=== PATIENT | female | born 1955 | race African-American/Black ===

== ENCOUNTER 2025-03-11 13:47 | Outpatient (OUT) | payer MEDICARE, MEDICAID, SELFPAY ==
--- NOTE | 2025-03-11 15:00 | P.CN_ITS ---
Consult Note: HPI Data of Consult Patient: new to practice Consult date: 03/11/25 Requesting Physician: Suzan Gomez MD Primary Care Provider: Jennifer Samayoa NP Consult Narrative Reason for consult: neck, left arm pain Narrative: 69yof who presents for evaluation. longstanding history of neck, shoulder, left arm pain. has had some relief with pain medication, but pain has persistently gotten worse. previous cervical mri showed multilevel stenosis, but this is now >18 months old. has continued in a series of provider directed home exercises >6 weeks, without significant benefit. denies adverse medication side effects. cc:: CC: Suzan Gomez MD Review of Systems ROS Status of ROS 10 or more systems reviewed and unremark able except as noted in history and below Exam Narrative Exam Narrative: Psych-alert and oriented x 3.? Attentive and appropriate, constitutionally normal, displays normal mood and affect per situation.? There are no obvious deficits in memory, reasoning, or intellect.? Skin-no obvious rashes, bruising, or erythema noted to the patient's area of pain.? Extremities-upper extremities are warm with minimal edema and palpable pulses. Cervical- tenderness to palpation noted in the cervical spine and paraspinal musculature.? Pain is elicited with flexion, extension, and lateral rotation of the cervical spine.? Range of motion is diminished due to pain. Facet loading maneuvers are positive.? Strength-unremarkable and within normal limits with the exception to the left biceps. Sensory-no notable sensory deficits in the bilateral upper extremities to touch or pinprick with the exception to decreased sensation to the left C4, 5, 6 dermatomal distribution.? Coordination remains intact.? Gait remains non-antalgic.? Assessment and Plan Assessment and Plan (1) Cervical stenosis of spinal canal: (2) Cervical spondylosis: Plan 69yof who presents for evaluation. failed conservative measures, as noted. imaging reviewed, as noted. given symptoms and previous imaging, would like to update her imaging with a cervical mri without contrast. she is in agreement. meds reviewed. will trial lyrica 50mg tid. she expressed understanding. follow up after imaging complete.
== END 2025-03-11 13:48 | disposition home or self-care (01) ==
LOC: PM 13:49
PROVIDERS: PCP Nurse Practitioner Adult Health; Visit Provider Anesthesiology
DX: M48.02 Spinal stenosis, cervical region (principal); M47.812 Spondylosis without myelopathy or radiculopathy, cervical region
CPT/HCPCS: G0463

== ENCOUNTER 2025-06-05 14:26 | Outpatient (OUT) | payer MEDICARE, MEDICAID, SELFPAY ==
--- OUTSIDE RECORDS SUMMARY | 2021-04-20 04:00 | XMS_ITS | Continuity of Care Document ---
Author Organization [facility] Address [address] [place] [address] Phone Care Team Providers Care Humidifier Attendant Name Role Phone Kin Ruiz Unavailable Unavailable Procedures Procedure Date Covid Testing [facility] Covid Testing [facility] Advance Directives Directive Yes / No Effective Date File Name No Information Encounters Encounter Description Practice Location Reason(s) For Visit Diagnoses Date Provider Providers Copied on Encounter [facility], [address] [place] [address], [id number], tel:[phone] COVID [facility] No Information Hema Edgar. [address], [place], [id number], [place]. tel:[phone] [facility], [address] [place] [address], [id number], tel:[phone] COVID [facility] Encounter for screening for other viral diseases Hema Edgar. [address], [place], [id number], [place]. tel:[phone] Family History Family Member Type Diagnosis Age At Onset No Information Payers Payer name Insurance type Covered green party ID Authoriza tion(s) Medicare PPS MB [id number] Social History Type Description Quantity Date Captured Comments Sex Female Smoking Status No Information Sexual Orientation Straight or heterosexual Gender Identity Female Chief Complaint And Reason For Visit No Information Reason For Referral Reason For Referral No Information History Of Present Illness Encounter Date Complaint History Of Prese nt Illness No Information Functional Status Date Functional Assessmen t No Information Instructions Date Instruction Additional Infor mation No Information Assessments Type Assessment Date No Information Patient Care Teams Name Effective Dates (start - stop) Status Members No Information
--- OUTSIDE RECORDS SUMMARY | 2025-05-30 17:35 | XMS_ITS | Continuity of Care Document ---
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 Name Role Phone Jennifer Samayoa NP-C Primary Care Provider Ginger HornC Other Provider [phone] Nick Pérez MD Attending Provider Jennifer Samayoa NP-C Attending Provider [phone] NON STAFF Primary Care Provider Ginger Correa NP-C Attending Provider Norman Contreras MD Attending Provider Mani Valle PA-C Emergency Provider Care Teams Patient Care Team Team Status: Active Member Role/Relationship Status Dates Jennifer Samayoa NP-C Primary Care Provider Active Visit Care Team Team Status: Active Member Role/Relationship Status Dates Jennifer Samayoa INSPECTOR SUBASSEMBLY-C Primary Care Provider Active Start: April 11, 2025 Toshia Mathur ProviderActiveStart: April 11, 2025 Papo Pulliam ProviderActiveStart: April 11, 2025 Visit Care Team Team Status: Inactive Member Role/Relationship Status Dates Jennifer Samayoa NP-C Attending Provider Active Start: April 30, 2025 End: April 30, 2025NON STAFFPrimary Care ProviderActiveStart: April 30, 2025 End: April 30, 2025 Visit Care Team Team Status: Inactive Member Role/Relationship Status Dates ЮЛИЯ Mathur Attending Provider Active St art: May 07, 2025 End: May 07, 2025NON STAFFPrimary Care ProviderActiveStart: May 07, 2025 End: May 07, 2025 Visit Care Team Team Status: Active Member Role/Relationship Status Dates ROOSEVELT PierreC Primary Care Provider Active Start: May 09, 2025 Norman Contreras [facility] ProviderActiveStart: May 09, 2025 Visit Care Team Team Status: Inactive Member Role/Relationship Status Dates Mani Valle PA-C Emergency Provider Active Start: May 30, 2025 End: May 30, 2025ROOSEVELT PierreCPrimary Care ProviderActiveStart: May 30, 2025 End: May 30, 2025 Chief Complaint and Reason for Visit Chief Complaint Admit Date Z95.0 April 11, 2025 1:42pm f11.90 April 30, 2025 9:00am Central stenosis May 07, 2025 7: 25am BH May 09, 2025 10 :00am gi issues May 30, 2025 6 :43pm Allergies, Adverse Reactions, Alerts Allergen Type Severity Reaction Last Updated Verified Status No Known Allergies Allergy Unknown May 30, 2025 6:50pmYesActive Social History Smoking Status Status Start Date End Date Date of Observa tion Current some day smoker May 30, 2025 7:45pm Observation Status Observation Response Date of Response Legal Sex Female (finding) Sex Assigned At BirthFemaleFebruary 1955 Family History Relationship Condition Age at Onset Recorded Date/T chasidy grandparent Cerebrovascular accident (CVA) Unknown fatherMyocardial infarctionUnknownHypertensionUnknownfamily memberDiabetes mellitusUnknownmotherDisorder of kidneyUnknownMyocardial infarctionUnknown HypertensionUnknown Problems Active Problems Problem Diagnosis/Recorded Date Onset Date Stat us RONAK (acute kidney injury) March 20, 2020 9:42pm Unk nown Active Effusion, right knee February 22, 2022 1:53pm Unknown Active [place] toxicity March 20, 2020 8:24pm Unknown Active [place] use March 01, 2019 4:48am Unknown Acti ve Acute proctitis May 30, 2025 9:29pm Unknown Active Cervical spondylosis without myelopathy January 28 7:28pm Unknown Active Feeling suicidal November 03, 2017 5:25am Unknown A ctive Tardive dyskinesia March 01, 2019 12:54am Unknown Active Tardive dyskinesia March 01, 2019 4:48am Unknown Active Tardive dyskinesia August 29, 2023 6:06pm Unknown Active Drug-induced parkinsonism January 28, 2025 7:28pm Unkno wn Active Lumbar strain September 20, 2021 5:49pm Unknown Active Strain of lumbar region April 24, 2017 8:02pm Un known Active Bilateral occipital neuralgia January 05, 2024 3:31pm Un known Active Acute exacerbation of chroni c low back pain July 20, 2019 2:35am Unknown Active Colitis, infectious September 07, 2020 2:19am Unknown Active Dizziness August 26, 2020 1:30am Unknown Ac tive Dizziness September 07, 2020 2:19am Unknown Ac tive Cocaine abuse November 03, 2017 5:25am Unknown Acti ve Chronic constipation January 22, 2024 7:21pm Unknown Active GI bleed March 18, 2022 12:21pm Unknown Ac tive Dyslipidemia March 23, 2020 12:03pm Unknown Ac tive Numbness in feet January 28, 2025 7:28pm Unknown A ctive Metabolic encephalopathy March 03, 2019 10:52am Unkn own Active Anxiety January 03, 2023 3:42pm Unknown Active Sinus bradycardia March 23, 2020 12:02pm Unknown Active Sinus bradycardia May 22, 2020 6:42pm Unknown Active Bradycardia May 21, 2020 6:27pm Unknown Ac tive Bradycardia May 21, 2020 8:53pm Unknown Ac tive Chest wall pain February 08, 2021 6:46pm Unknown Ac tive Chest wall pain February 08, 2021 6:49pm Unknown Ac tive History of laparoscopic appendectomy April 10, 2:02pm Unknown Active Colitis March 18, 2022 12:22pm Unknown Ac tive Hemorrhagic shock March 18, 2022 12:22pm Unknown Active Chronic pain of right knee January 03, 2023 3:42pm Unkno wn Active Depression November 03, 2017 5:25am Unknown Activ e Diarrhea October 02, 2021 12:49pm Unknown Acti ve Leukocytosis September 07, 2020 2:19am Unknown Ac tive Occipital neuralgia of left side January 28, 2025 7:27p m Unknown Active Atypical chest pain September 22, 2021 2:23am Unknown Active Other chronic pain January 05, 2024 9:58am Unknown Active Proctitis December 01, 2023 2:45pm Unknown Active Schizoaffective disorder November 06, 2017 1:08pm Unknow n Active Schizophrenia September 08, 2017 3:47pm Unknown A ctive Schizophrenia March 01, 2019 12:54am Unknown Ac tive Ischemic colitis September 07, 2020 6:20pm Unknown Active Bipolar 1 disorder March 01, 2019 12:54am Unknown Active Bright red rectal bleeding September 07, 2020 2:19am U nknown Active Bright red rectal bleeding September 22, 2021 2:23am Unknown Active Bright red rectal bleeding March 17, 2022 9:28pm Un known Active Rectal bleeding September 07, 2020 2:47am Unknown Active Acute UTI September 07, 2017 10:27pm Unknown A ctive Acute UTI November 03, 2017 5:25am Unknown Activ e Acute UTI August 29, 2023 8:54pm Unknown Ac tive Altered mental status March 20, 2020 8:24pm Unknown Active Polysubstance abuse November 03, 2017 9:42pm Unknown Active Acute blood loss anemia March 18, 2022 12:21pm Unkn own Active Melena October 02, 2021 12:48pm Unknown Acti ve GERD (gastroesophageal reflux disease) December 01, 2023 2 :46pm Unknown Active Abdominal pain October 02, 2021 12:49pm Unknown Ac tive Bronchitis June 21, 2017 2:56am Unknown A ctive Chest pain May 30, 2021 7:15am Unknown Ac tive Chest pain January 03, 2023 3:42pm Unknown Active Chest pain August 29, 2023 5:59pm Unknown Ac tive Hypertension March 01, 2019 12:54am Unknown Act shonda Constipation December 01, 2023 2:45pm Unknown Active Stercoral ulcer of anus March 18, 2022 1:01pm Unkno wn Active Contact dermatitis July 06, 2020 5:57pm Unknown Active Inactive/Resolved Problems Problem Diagnosis/Recorded Date Onset Date Stat us Presence of Watchman left at rial appendage closure device August 30, 2023 5:15pm Unknown Resolved History of shingles October 18, 2023 10:38am Unknown Resolved Cocaine abuse September 07, 2017 10:27pm Unknown Resolved Suicidal ideation September 07, 2017 10:27pm Unknown Resolved Essential thrombocytosis August 01, 2024 5:19pm Unkn own Resolved Anxiety May 17, 2023 10:16pm Unknown R esolved Anxiety October 18, 2023 10:38am Unknown Res olved Sick sinus syndrome September 09, 2020 3:47pm Unknown Resolved Colitis December 22, 2024 4:28pm Unknown Resolv ed Diverticulitis December 06, 2023 2:01am Unknown Resol colleen History of rectal bleeding March 30, 2023 1:45pm Un known Resolved Right lower quadrant abdominal abscess January 22, 2024 7:21pm Unknown Resolved Bright red rectal bleeding March 30, 2023 1:45am Un known Resolved Knee pain, left February 03, 2023 5:18pm Unknown Res olved Acute UTI May 14, 2024 8:58pm Unknown Re solved Acute UTI August 23, 2024 12:31pm Unknown R esolved Acute UTI December 22, 2024 4:28pm Unknown Resolv ed Altered mental status March 01, 2019 3:31am Unknown Resolved Knee pain March 01, 2024 9:24pm Unknown Reso lved Nausea and vomiting January 22, 2024 7:21pm Unknown Resolved Abdominal pain January 15, 2025 9:03pm Unknown Res olved Bronchitis August 23, 2024 11:49am Unknown R esolved Chest pain December 06, 2023 2:01am Unknown Resolve d Nausea January 15, 2025 9:03pm Unknown Resol colleen Parkinson disease February 09, 2024 2:59pm Unknown Resolved Constipation August 01, 2024 5:19pm Unknown Res olved Acute appendicitis January 22, 2024 6:24pm Unknown Resolved Medications Medication Status Dose Units Route Directions Qty Days Refills S tart Date Stop Date End Date Reason(s) Instructions Adherence Lactulose 10 gram/15 mL solution Discontinued 15 ML PO Twice daily as needed for constipation 237 11December 2023 12:21pmJuly 2024 8:15amTopiramate 25 mg tablet Xmavaqtqwfyu72JJKIEupfo at sevqket862Tfuv 2024 12:00amJuly 2024 8:15amDeutetrabenazine (Austedo) 9 mg ocerwzTyswhx7KPHNAxonm times sgdko962182 March 19, 2025 12:00amTake one tablet by mouth in the morning, one tablet by mouth in the afternoon and two tablets by mouth at bedtimeComplies with drug therapyTopiramate 25 mg mkfzliPudkpe31UJBTDhvcx at gjywlbi40506Orwxesxnj 11th, 2025 12:00amComplies with drug therapyAmitriptyline 25 mg GlgdsgPybvrzlpxkjb83QC PODaily at fzxvlev7Yqshi 2017 12:002018 12:54amHydroxyzine Pamoate (Vistaril) 50 mg RmvirkvVawprstzeven08PVVMWoqzs uhyrm17Jcuqc 2017 8:302018 12:53amIloperidone (Fanapt) 6 mg UpaopvCauopzqdcdse9JIHK Twice hhijd079Whdxo 2017 11:302018 12:53amNaproxen 500 mg hinnhpNmmokqgxygno571WDACFzpho daily as needed for szir662Blezulya 2017 1:002018 12:53amadminister with food or milkTrazodone 50 mg Tablet Ovwtgsdpmtqz186ATEMBraom at bedtimegust 2019 12:00amJune 2023 3:11pmLithium Carbonate 300 mg Tablet Extended NnpclnePglimifvkdzp659TZLVNtgar March 21, 2020 12:00ugust 2019 11:14amCetirizine (Zyrtec) 10 mg SirnyobDuetkvynsfsb86EVORWzqxzKzbedg 21st, 2020 12:00amFebruary 2020 11:26pmErgocalciferol (Vitamin D2) (Vitamin D2) 1,250 mcg (50,000 unit) Capsule Lbjovpgrjhzt7163HUWBPkuzbf weekMarch 21, 2020 12:00amFebruary 2020 11:26pmDiphenhydramine Hcl (Banophen) 25 mg JisbjfqQtcxwotykews60MKDZFspti at bedtime2019 12:00amFebruary 2021 5:35pmOlanzapine 20 mg PuqvysFkuufwyrgkup55BQJYHfejvdjZrtiip 2019 12:00amFebruary 2020 11:26pmDiclofenac Sodium 75 mg Tablet,Delayed Release (Dr/Ec)Bhvhtykjkqmb47NREL Twice dailyAugust 2019 12:00amAugust 2019 11:14amDivalproex 500 mg Tablet,Delayed Release (Dr/Ec)Lhdwlgvgkwny852LTFRJbqmj etlcj60617Gkeuav 2019 12:00amFebruary 2020 11:26pmCephalexin (Keflex) 500 mg capsule Elacbrsfridl6892UXEKPgyqo wyqcg2532Ixclsle 2020 1:00amFebruary 2020 11:26pmSertraline 25 mg dibiftWpbibgejnxif80OXVWFzawiOnfppevs 2021 1:00am January 05, 2024 3:11pmZolpidem 5 mg roahgkGfdugb5GBBXNkingir as needed for Sleep September 20, 2021 1:00amComplies with drug therapyDeutetrabenazine (Austedo) 9 mg jceinyTrttolzuspgu57DHNEDgzsbdzSmractak 2021 1:00amJune 2023 3:09pmpatient takes 9 mg morning and noon and 18 mg at HSDiclofenac Sodium 1 % vnuEqjcipcjhmah5NPOEMIMJWJqmj times iuqrn4207Tgho 2021 12:00amMarch 2023 8:42amapply to single knee, ankle, foot; for foot includes sole/toes/top of footHydrocodone-Acetaminophen 5-325 mg srcemoQrfutlsinmpl5DOXHLM8M as needed for zhfb907Goxn 2021 7:15pmAcute knee pain Pain in unspecified kneeHydrocortisone Acetate (Anusol-Hc) 25 mg suppository Otkmuqzdsani20DHFQPpzfp431Jppcla 2022 12:00amJune 2023 3:10pmDocusate Sodium (Colace) 100 mg msjdqsyMqwvktitbhms689MFMXIxncv642Lijrde 2022 12:00amMay 2023 2:52pmHydrocortisone (Anusol-Hc) 2.5 % cream with perineal grosmyzgznDnjqacrugmfz2JPZQDXYQ0-6 TIMES PER DAY as needed for bznd798Bthtva 2022 12:00amJune 2023 10:31pmHydroxyzine Pamoate (Vistaril) 50 mg hrlhecaYyfbehjzpslb52BVCLCaeyf daily as needed for dchcbza78Kpsoibt 2022 12:00amNovember 2022 3:41pmAmoxicillin-Pot Clavulanate 875-125 mg tablet Hzlqdyomznzz4QHDMJQrmlv exean5816Npv 2023 12:00amJune 2023 3:10pm Acetaminophen-Codeine 300-30 mg bypeikKddpokoelrzo2VVPQN.tid weeklyJune 2023 12:00amJune 2023 11:51amCetirizine 10 mg tabletDiscontinuedMGJune 2023 12:00amJuly 2024 8:15amPantoprazole 40 mg tablet,delayed release (DR/EC)Ejnnsexbuntg09OGVFAtwakImyx 2023 12:00amSeptember 2023 2:07pmDivalproex 500 mg tablet,delayed release (DR/EC)Bkjgjduqtrtc057OFDD DailyJune 2023 12:00amSeptember 2023 2:01pmHydrocodone-Acetaminophen 5-325 mg gunvblGivostqgvlru9CQDOOT6K as needed for quaz6453Vtyf 2023April 10, 2024 2:02pmAcute appendicitis Unspecified acute appendicitisAcetaminophen-Codeine 300-30 mg tabletDiscontinued 1TABPOEvery 8 hours as needed for zkym3989Xszz 2023 12:00amJuly 2024 8:15amAbdominal pain Unspecified abdominal painNabumetone 750 mg wyriinKtxprujezwze442PAMNQupxe daily 100August 2023 12:00amJuly 2024 8:15amCephalexin 500 mg capsule Teystoalcldi555VZONTxtpo yikky9036Ykytkgu 2023 12:00amJune 2024 4:06pmAmoxicillin-Pot Clavulanate 875-125 mg vetpriSwsehqghwhgv7MHKNKOxpbd daily 140May 2024 12:00amMay 2024 3:15pmAtogepant (Qulipta) 10 mg tablet Wxbpby33GYRNGjtlmQiar 2024 12:00amComplies with drug therapy Diphenhydramine Hcl 25 mg qbrndtPkiksx26YTGPQwcfc at bedtimeJuly 2024 12:00amComplies with drug therapyCyclobenzaprine 5 mg vdavjxHtlkgl3ANTKBiyxr at bedtimeJuly 2024 12:00amComplies with drug therapyDeutetrabenazine (Austedo) 12 mg vecwfhDgphdy21VSPEQjuye at bedtimeJuly 2024 12:00am Complies with drug therapyOxycodone-Acetaminophen 5-325 mg tabletDiscontinued1 VZXSMV2F as needed for oipw1413Vvdfba 2024October 2024 7:37pm Abdominal pain Unspecified abdominal painAmitriptyline 50 mg ThstarKlslrboryeaa38QOTAXfjaq dailySeptember 2016 12:00amFebruary 2017 12:13pmAmantadine Hcl 100 mg CutzewrCjvjsuozqvji515XAWMHfbrv times dailySeptember 2016 12:00amFebruary 2017 11:39amLisinopril 10 mg UulzioRovuuirtesse81LJWRSrrenRxanqtbbz 2016 12:00amFebruary 2017 3:37pmIloperidone (Fanapt) 6 mg Tablet Lpvuldkkwvjx6NJHAWkjdb dailySeptember 2016 12:00amFebruary 2017 11:39amNaproxen (Naprosyn) 500 mg kdhvzfOhtfhznzwgse096XGHYB80Y453Bcnykamvr 2016 12:00amNovember 2016 2:22amadminister with food or milk Amoxicillin 500 mg kjrwbyReazqnbwrmdh281MGJXD8Y999Uyymhlgg 2016 1:00am September 07, 2017 6:50pmAmitriptyline 50 mg AiresxHrzoqnulaosm46AVZSZthatgt September 08, 2017 1:00amFebruary 2017 11:37amHydroxyzine Pamoate (Vistaril) 50 mg DvnhydnCeipeuxxicxb95ZTQLIiigo times dailyFebruary 2017 1:00amApril 2017 8:30amChlorpromazine 50 mg ZhvymnGnagyowqlonb32JQKTXqbuw at kjizjva030Pmozfogl 2017 1:00amApril 2017 8:30amAmantadine Hcl 100 mg CcytoeoRpfzlpsegtqr154FCAWJkwyk times mdmiv542Iqhenpsj 2017 11:39am March 01, 2019 12:53amIloperidone (Fanapt) 6 mg QsspsiScjsxaswolfh6JILSUwire zftvb091Qzjhxctl 2017 11:39amApril 2017 11:23amKetorolac 10 mg bornnzPyxmmdonzafq31AYNMA2I as needed for zojc0697Dsnjm 2018 12:00ugu2018 12:53amPain Pain, unspecifiedAtorvastatin 40 mg KkbfjsZgddvmovbgzf59GAANAdcsozjDfbyzm 2018 12:00amNovember 2022 3:43pmAmlodipine 10 mg ZsdiyyQbgfgjhphudf4HKYX DailyAugust 2018 12:00amFebruary 2020 12:45pmBenztropine 1 mg Tablet Dbfnvxoflixk1RMCGWzzjg dailyAugust 2018 12:002019 2:56pm Gabapentin 300 mg BzwqtbxRnbqkpehecmx688YYVXDvdbw dailyAugust 2018 12:00am December 01, 2023 2:53pmOlanzapine 15 mg BqhjncFthvkwabntdq91UHGQDlzwwwrCgcuci 2018 12:002019 2:57pmLithium Carbonate 300 mg TabletDiscontinued 300MGPODailyAugust 2018 12:002019 6:37amAripiprazole 2 mg QbsmvoJwdvfgrypltq9SKYROgplsNgtain 2018 12:002019 2:56pm Cholecalciferol (Vitamin D3) 5,000 unit DrsbwsJabfgamfaoko5FRGCGgbiet weekMarch 01, 2019 12:002021 7:13pmCefuroxime Axetil 250 mg tablet Rrfvjhjcytsh276WXHREmmqj bmwms15QmcxwwMarch 03, 2019 12:002019 2:56pm Valbenazine 40 mg pfnxkgjTlewfwoltdps57CJBCOhiof206Rvnxrw 3rd, 2019 12:00am March 21, 2020 2:57pmHydrocodone-Acetaminophen ([place]) 5-325 mg tablet Sulubbxyxhjq8SIBGHG6V as needed for gqpq7799Mwzsyfaz 20th2019 2:56pmStrain of lumbar region Strain of muscle, fascia and tendon of lower back, initial encounterNaproxen 500 mg djhxhwLwfdedeengnm388OYEDLlopy daily as needed for bkan469Remrxpos 2018 1:002019 2:57pmadminister with food or milkTriamcinolone Acetonide 0.1 % gctjdDdrjaxmhgrmg8SWIIBHTVRXNBRBfqdb times daily as needed for wrll677Cwpnrysu 2019 5:55pmMarch 2023 10:13amLidocaine 5 % adhesive patch,yropyxhyzIyumabogdtfb4KKLZJQEMHSWNTgsii as needed for muscle rjaa773 July 06, 2020 5:56pmFebruary 2021 5:35pmleave on most painful area for up to 12 hrsDivalproex 500 mg tablet,delayed release (DR/EC)Ltnkrqcjdexr813 MGPOBedtimeFebruary 2020 11:25pmMay 2023 2:54pmCyclobenzaprine 5 mg xjpczfGfrhzhjhbcef4QQBKWe Directed as needed for PainFebruary 2020 1:00am March 18, 2022 10:00amDivalproex 250 mg tablet,delayed release (DR/EC) Colrlcebuccu629BICMSdhqd morningFebruary 2020 1:002021 6:29cw568ww in AM, 500mg @HSClindamycin Hcl 300 mg mvhtymrFutsmpvoyzpt502RMMQ Three times kamrd0016Hvfyqxon 2020 1:00amFebruary 2021 5:35pm Nicotine 21 mg/24 hr Patch 24 QkfnQbasdhpgyxby1EAWENVCBWNUZELPYvwgy364Cuwwzmmg 2020 1:00amFebruary 2021 5:35pmHydrocodone-Acetaminophen 5-325 mg mkwnyhTashxndoiqxp3LMXCGS5F as needed for crft976Zmavncdl 2020February 2021 5:35pmSick sinus syndrome Sick sinus syndromeAmlodipine 5 mg LvbdkcYwugyx6MNSSAhmvxQayse 2021 1:00am Complies with drug therapyOxycodone 5 mg MmbbzdOywdjgtnuuhs5DJOYI7I as needed for Pain Scale 4 - 64947Pitjvw eptember 2021 3:16pmColitis Noninfective gastroenteritis and colitis, unspecifiedAmoxicillin-Pot Clavulanate 875-125 mg kwymjeJhfwmbbpsgsw6OTTKSSmswg vgjce134Tkcolk 2021 12:00am April 11, 2022 3:16pmMesalamine 4 gram/60 mL DeympQmfihpkgtrgd6AVCGAmogu gjoby82Uafwlb 2021 12:00amNovember 2022 3:42pmAcetaminophen-Codeine 300-15 mg jwzheyTcesoluhorhr0WMIJMGlffk daily as needed for tzyx490Ammx 2022 12:00amJanuary 2023 9:44amChronic pain of right knee Pain in right knee Other chronic painAtorvastatin 20 mg ecwrsuYcrxqj09IGIQKsiyl at bedtimeJune 24, 2023 1:00amComplies with drug therapyFluticasone Propionate 50 mcg/actuation spray,bzbeeoutcoOaofvq7BVHOLAFTYQFROXBSjpjsXitftpgh 24th, 2023 1:00amComplies with drug therapyDicyclomine 10 mg gordtwnJuhjnaiaeote67KGGZUeiin June 24, 2023 1:00amSeptember 2023 2:10pmLactulose 10 gram/15 mL qzfsotszFycjlyusgnkv21XYWOGrley 2022 1:00amMarch 2023 10:13amOn Hold: feel too sickBudesonide-Formoterol (Symbicort) 160-4.5 mcg/actuation HFA aerosol detbsnlSccucdgqwlmd2HPMPAEARULCNNSOyjnv as needed for Shortness Of BreathJune 24, 2023 1:00amJune 2023 3:10pmVortioxetine (Trintellix) 10 mg wymlffBpcjlfgmzboq74ANFEPgvio morningJune 24, 2023 1:00amSept2023 2:04pmPantoprazole 40 mg tablet,delayed release (DR/EC)Ubkmtlsbdyah85NSAUSfbzk dailyJune 24, 2023 1:00amMay 2023 3:17pmMultivitamin SgwweiKsquasmgffqo0CJKGIXrbtnFnycbiiz 24th, 2023 1:00amJuly 2024 8:15amCyanocobalamin (Vitamin B-12) (Vitamin B-12) 1,000 mcg Tablet Yzesnshjtcrp3805ONAHVLvfdeSrfergyw 24th, 2023 1:00amJuly 2024 8:15am Ascorbic Acid (Vitamin C) (Vitamin C) 500 mg KfntxdEibnbqgawcgf827TAKDTbeob June 24, 2023 1:00amMay 2023 2:52pmVitamin E 400 unit Tablet Gtxasaglmbow565BFZKRXJnnqlQbxbptoe 24th, 2023 1:00amMarch 2023 10:13amOn Hold: does not take anymoreCholecalciferol (Vitamin D3) (Vitamin D3) 10 mcg (400 unit) LrcjlsEionyzremljd13SEDRNDtejaAybkcumx 24th, 2023 1:00amMay 2023 2:52pmVortioxetine (Trintellix) 10 mg udvzloFaewxf17MHMDYweov morningSept2023 2:03pmComplies with drug nrbzzbyjowzfdbIxdbyzzudzkt94ADUZNzzhnAyxnkad 2023 1:00amJune 2023 10:05amDoxycycline Hyclate 100 mg tablet Kclffibkogot118TWFDXjorn cnlsj0218Unkvjhi 2023 1:00amMay 2023 9:23pm Capsaicin (Zostrix) 0.033 % appmxFoxaqszptpuy5OYTQTLWVIRWIHDdnvy daily as needed for skin burning sensation in the right upper chest56.60January 2023 1:00amMay 2023 2:52pmApply sensitive skin in the right upper chest. do not wash area for at least 30 min after applicationAcetaminophen-Codeine 300-15 mg cyboooKeiawhzjdppt8PYYFJYoipb daily as needed for xgof8113Eyrdiwa 2023 9:44amMarch 2023 10:13amChronic pain of right knee Pain in right knee Other chronic painOn Hold: stomac bleedSennosides (Senna) 8.6 mg capsule Discontinued8.5DNJUOycbh240Hbvhvyp 2024 1:00amJuly 2024 8:15am Polyethylene Glycol 3350 (Clearlax) 17 gram/dose lqalsvOwickdymspgc10VRUPFwhxo 5100August 01, 2024 1:00amJuly 2024 8:15amBenzonatate 100 mg capsule Ovchyzohzbuq348YEZHPjcyh times daily as needed for xbbmu499Hqwhyni 2024 1:00amJune 2024 4:06pmCephalexin 500 mg jzsutvsWiuckazjhkzo690BJMYJnmiz wjcix999Xhlzabh 23rd, 2025 1:00amMay 2024 3:28pmLorazepam (Ativan) 1 mg dqnsexIatfzrvsflqn2CGGEGulnw dailyMa2024 12:00amJune 2024 7:14pm Amoxicillin-Pot Clavulanate 875-125 mg byflkoIjdzdsntfvds8ROCTYUczfg umrqq363DqiDecember 22, 2024 12:00amJune 2024 4:06pmLorazepam (Ativan) 1 mg hnpqieCxyuzw4SL POTwice dailyJune 2024 7:13pmComplies with drug therapyOxycodone- Acetaminophen (Percocet) 5-325 mg hctdgwZzpnvemsjhaa5ALXEQCzuic 6 hours as needed for evfs368Mptc2024July 2024 8:15amAbdominal pain Unspecified abdominal painOndansetron 4 mg tablet,nhrghgfnuqkhgfGwpweycgvybh8RW POFour times daily as needed for nausea and bbeespny599Pqyc 17th, 2025 12:00am February 21, 2025 8:15amOxycodone-Acetaminophen 5-325 mg skhmyjCtodnfpppkoe3VUISZ Q6H as needed for kono9667Hhax 2024July 2024 8:15amAbdominal pain Unspecified abdominal painAmoxicillin-Pot Clavulanate 875-125 mg tabletActive1 TABPOTwice hvwin223Podzomd 2024 12:00amUnknownHydrocodone-Acetaminophen 5- 325 mg bapljlGhcvaa6BLOLKMYHUA 4-6 HOURS as needed for xses471Yqekdeg 2024 Acute proctitis Other specified diseases of anus and rectumUnknownBuspirone 5 mg gyvwqfXnkcby62 MGPOThree times dailyMay 2023 12:00amComplies with drug therapyLactulose 10 gram/15 mL solutionDiscontinuedPOas neededMay 2023 12:00amMay 2023 3:17pmLactulose 10 gram/15 mL xjnexcucCqcdkqsapdzl99SXTVOviyz daily as neededMay 2023 3:13pmMay 2023 3:17pmPantoprazole 40 mg tablet,delayed release (DR/EC)Kiialkkrczyb97AQZAYkacb auoux18005Ttf 2nd, 2024 3:14pmJune 2023 10:37pmLactulose 10 gram/15 mL lyuqjmqnFuwjryshkozt59LAPKWzprt daily as needed for dimdrvjpnnmj7664Feq 2nd, 2024 3:17pmSeptember 2023 2:07pmLactulose 10 gram/15 mL zckkirmnGdcisyjdlnet36NPIFQxnfo daily as needed for udojabhnxzoz0716 April 10, 2024 2:06pmSeptember 2023 2:10pmPantoprazole 40 mg tablet,delayed release (DR/EC)Lcuxmfsswqdt64IVGKVepzf716097Cepgrtpso 10th, 2024 2:06pmJuly 2024 8:15amLactulose 10 gram/15 mL dmvcucyrRtpeqdhxrkav65TQIN Twice daily as needed for qgshgvuiunng08556Gltiwzknw 10th, 2024 2:07pmDecember 2023 12:22pmDicyclomine 10 mg xwcgohnAygklffjglaj43IRZWCxyug493797 April 10, 2024 2:09pmJuly 2024 8:15amAtogepant 30 mg tablet Oeczkbsmnvfo97GPOQOcetlYidr 2023 12:00amMay 2024 3:16pmCapsaicin 0.025 % ipjdfDwrtuuvoyefj0DVGUQZLATKEIGNzdaf dailyJune 2023 12:00amJune 2023 10:28pmdo not wash area for at least 30 min after application Cetirizine (All Day Allergy (Cetirizine)) 10 mg vkxjdzHqsaldhkgqho52WFSHQhhyz as neededJune 2023 12:00amJune 2023 3:09pmCholecalciferol (Vitamin D3) 10 mcg (400 unit) aelmlgcTgwdymmcmenj80APQJHYoxptYfmg 2023 12:00amJuly 2024 8:15amCyclobenzaprine 10 mg pwctueNmfxbcrcwgip15BDANCbapl at bedtimeJune 2023 12:00amJune 2023 10:28pmDivalproex (Depakote Er) 500 mg tablet extended release 24 rlLoturzgafgrq285PFNASoweqpmZkwv 2023 12:00amSept2023 2:01pmDeutetrabenazine 9 mg igaeksMnseunjvmdwp7OQTCJypuj dailyJune 2023 12:00amJune 2024 7:14pmDocusate Sodium 100 mg capsule Fbrzomcpcoqn80RUOKXpvkrxcZvmi 2023 12:00amJuly 2024 8:15amLoratadine (Allergy Relief (Loratadine)) 10 mg issvxrLqyjsndqjoao29JFSTBwzrhzkQhzk 2023 12:00amJuly 2024 8:15amBudesonide-Formoterol (Symbicort) 160-4.5 mcg/actuation HFA aerosol esmwrkpYyjgmv1BYGQQONJIYJMGOEpovkPgug 2023 12:00amComplies with drug therapyTrazodone 100 mg dxgilhMwwiby259GVNPUqaliywIivb 2023 12:00amComplies with drug therapyDeutetrabenazine 9 mg tablet Vtfvwidwzhqz6JX.COMPLEXJune 2024 7:14pmJune 2024 7:16pmTake 1 tablet by mouth daily in the morning, take 1 tablet by mouth daily in the afternoon, and take 2 tablets by mouth daily in the eveningDivalproex (Depakote) 500 mg tablet,delayed release (DR/EC)Gsrwfo464HCFKItepr at bedtimeJune 2024 12:00amComplies with drug therapyDeutetrabenazine 9 mg nelwjnXyiqzeyklltj9QN .AKSETEZ0656Pztt 2024 7:15pmJuly 2024 8:15amTardive dyskinesia Drug induced subacute dyskinesiaTake 1 tablet by mouth daily in the morning, take 1 tablet by mouth daily in the afternoon, and take 2 tablets by mouth daily in the evening Immunizations Immunization Event Date Not Given Reason Dose Number Stiff Neck Loader Lot Number Reason(s) Given Vaccine Information Statement (VIS) Detail Administration Location COVID-19 mRNA-1273 (Moderna) October 09, 2020 COVID-19 mRNA-1273 (Moderna)November 06OVID-19 mRNA-1273 (Moderna)August 21, 2021Quadrivalent Influenza (mdv)May 14, 2015Quadrivalent Influenza September 08, [id number] Clinic [facility] Device Date Implanted Device Details Endocardial pacing lead September 10, 2020 TOBY: [id number] Issuing Agency: [facility] Device Id: [id number] Expiration Date: 2023-04-30 Serial Number: [id number] pacing leadFebruary 2020UDI: [id number] Issuing Agency: [facility] Device Id: [id number] Expiration Date: 2023-06-30 Serial Number: [id number]-rmedjew implantable pacemaker, rate-responsive September 10, 2020UDI: [id number] Issuing Agency: [facility] Device Id: [id number] Expiration Date: 2022-01-28 Serial Number: [id number] Procedures Procedure Date Performed Status MR cervical spine wo con May 07, 2025 7:26a m completed XR pre/post mri xray May 07, 2025 7:27am co mpleted CT abdomen pelvis w con May 30, 2025 7:41p m completed Stool Occult Blood (JOSE) May 30, 2025 comp leted Relevant Diagnostic Tests and/or Laboratory Data Laboratory Results Test Collection Date/Time Result Date/Time Result Interpretation Reference Range Result Comment Performing Site Corrected White Blood Count April 30, 2025 9:00am April 30, 2025 10:31pm 4.2 10*3/uL 3.8-11.6[facility] [id number] [address] [place] [address] 72557Zsuthctpx White Blood CountOctober 2024 7:31pmOctober 2024 7:43pm5.5 10*3/uL3.8-11.6FMag[facility] [id number] [address] [place] [address] 71468Xjyyhegautl WBC CountSeptember 2024 9:00amSeptember 2024 10:31pm4.2 10*3/uL3.8-11.6FMag[facility] [id number] [address] [place] [address] 95713Cweobstqjma WBC CountOctober 2024 7:31pmOctober 2024 7:43pm5.5 10*3/uL3.8-11.6FMag[facility] [id number] [address] [place] [address] 88515Wip Blood CountSeptember 2024 9:00amSeptember 2024 10:31pm4.97 10*6/uL3.60-5.00[facility] [id number] [address] [place] [address] 15446Nry Blood CountOctober 2024 7:31pmOctober 2024 7:43pm4.54 10*6/uL3.60-5.00[facility] [id number] [address] [place] [address] 38377RlmkhbnsfsGowvtftna 2024 9:00amSeptember 2024 10:31pm15.5 g/dLAbove high acrzfg76.8-15.4FMagruder [facility] [id number] [address] [facility] 750[address]OcjlbbfxxxMprjdpv 2024 7:31pmOctober 2024 7:43pm 13.9 g/dL11.8-15.4FMagruder [facility] [id number] [address] [facility] 93717VxajvkzydqNdkjokyhs 2024 9:00amSeptember 2024 10:31pm46.9 %Above high yxjvws44.0-46.4FMag[facility] [id number] [address] [facility] 13950KmpwfkqyvlLmifzil 2024 7:31pmOctober 2024 7:43pm 42.0 %34.0-46.4FMag[facility] [id number] [address] [facility] 04417Xreq Corpuscular VolumeSeptember 2024 9:00amSeptember 2024 10:31pm94.3 gQ65-490NepflkoukC[facility] [id number] [address] [facility] 86364Ejsz Corpuscular VolumeOctober 2024 7:31pmOctober 2024 7:43pm92.5 xY64-745XoudmanaeCleveland Clinic [facility] [id number] [address] [facility] 97013Lbht Corpuscular HemoglobinSeptember 2024 9:00amSeptember 2024 10:31pm31.2 pg24.7-34.3FMagruder Memorial [facility] [id number] [address] [place] [address] 15837Zgzd Corpuscular HemoglobinOctober 2024 7:31pmOctober 2024 7:43pm30.7 pg24.7-34.3FMagruder [facility] [id number] [address] [place] [address] 73551Szyv Corpuscular Hemoglobin ConcentSeptember 2024 9:00am April 30, 2025 10:31pm33.1 g/dL32.0-35.0[facility] [id number] [address] [facility] 64401Sfhu Corpuscular Hemoglobin ConcentOctober 2024 7:31pm May 30, 2025 7:43pm33.2 g/dL32.0-35.0[facility] [id number] [address] [facility] 27937Pdf Cell Distribution WidthSeptember 2024 9:00amSeptember 2024 10:31pm14.6 %11.9-15.3FMagr[facility] [id number] [address] [facility] 51859Lui Cell Distribution WidthOctober 2024 7:31pmOctober 2024 7:43pm14.5 %11.9-15.3FMagr[facility] [id number] [address] [facility] 62363Cegcszpp CountSeptember 2024 9:00amSeptember 2024 10:11rd055 10*3/lX843-966CypjpeqzeC[facility] Clinic [facility] [id number] [address] [facility] 19281Dsmehryo CountOctober 2024 7:31pmOctober 2024 7:79gc338 10*3/fN015-379MbgwojoqcC[facility] Clinic [facility] [id number] [address] [facility] 47060Fwiy Platelet VolumeSeptember 2024 9:00amSeptember 2024 10:31pm9.6 fL6.3-10.7FMagr[facility] [id number] [address] [place] [address] 71512Clxq Platelet VolumeOctober 2024 7:31pmOctober 2024 7:43pm8.3 fL6.3-10.7FMagr[facility] [id number] [address] [place] [address] 24079Qdcivmzg Distribution WidthOctober 2024 7:31pmOctober 2024 7:43pm18.03 %0.00-20.00[facility] [id number] [address] [place] [address] 47348Sxkujopcrzz (%) (Auto)April 30, 2025 9:00amSeptember 2024 10:31pm54.4 %.[facility] [id number] [address] [facility] [place] [address]Fviszqdoquq (%) (Auto)May 30, 2025 7:31pmOctober 2024 7:43pm63.7 %.[facility] [id number] [address] [facility] [place] [address]Yqwjlvbchgs (%) (Auto)April 30, 2025 9:00amSeptember 2024 10:31pm34.8 %.[facility] [id number] [address] [facility] [place] [address]Klqxtzpwqbn (%) (Auto)May 30, 2025 7:31pmOctober 2024 7:43pm23.6 %.[facility] [id number] [address] [facility] [place] [address]Tdaegcrii (%) (Auto)April 30, 2025 9:00amSeptember 2024 10:31pm7.9 %.[facility] [id number] [address] [facility] [place] [address]Ucfralcyc (%) (Auto)May 30, 2025 7:31pmOctober 2024 7:43pm10.5 %.[facility] [id number] [address] [facility] [place] [address]Mdxogtcideg (%) (Auto)April 30, 2025 9:00amSeptember 2024 10:31pm1.6 %.[facility] [id number] [address] [facility] [place] [address]Ckrlddtoptq (%) (Auto)May 30, 2025 7:31pmOctober 2024 7:43pm1.7 %.[facility] [id number] [address] [facility] [place] [address]Mvkuxwbwd (%) (Auto)April 30, 2025 9:00amSeptember 2024 10:31pm1.3 %.[facility] [id number] [address] [facility] [place] [address]Xguasbgon (%) (Auto)May 30, 2025 7:31pmOctober 2024 7:43pm0.5 %.[facility] [id number] [address] [facility] 54245Tnekupoac RBC Relative Count (auto)April 30, 2025 9:00am April 30, 2025 10:31pm0.3 /100{WBC}0-0.5FMag[facility] [id number] [address] [facility] 16248Rodqqevwe RBC Relative Count (auto)May 30, 2025 7:31pm May 30, 2025 7:43pm0.2 /100{WBC}0-0.5FMag[facility] [id number] [address] [facility] 42069Gkfiyqjjjxp # (Auto)April 30, 2025 9:00amSeptember 2024 10:31pm2.3 10*3/uL1.8-7.7FMag[facility] [id number] [address] [facility] 23601Cewykirmcbm # (Auto)May 30, 2025 7:31pmOctober 2024 7:43pm3.5 10*3/uL1.8-7.7FMag[facility] [id number] [address] [facility] 87491Gmhqnrtgqkb # (Auto)April 30, 2025 9:00amSeptember 2024 10:31pm1.5 10*3/uL1.00-4.8[facility] [id number] [address] [facility] 01984Bscopjacpdg # (Auto)May 30, 2025 7:31pmOctober 2024 7:43pm1.3 10*3/uL1.00-4.8[facility] [id number] [address] [facility] 86700Kkwovrpwm # (Auto)April 30, 2025 9:00amSeptember 2024 10:31pm0.3 10*3/uL0.0-0.8[facility] [id number] [address] [facility] 532[address]Cqduptyrh # (Auto)May 30, 2025 7:31pmOctober 2024 7:43pm0.6 10*3/uL0.0-0.8[facility] [id number] [address] [facility] 945[address]Pghizpwylhv # (Auto)April 30, 2025 9:00amSeptember 2024 10:31pm0.1 10*3/uL0.0-0.45[facility] [id number] [address] [facility] 40378Syrwfmsuecx # (Auto)May 30, 2025 7:31pmOctober 2024 7:43pm0.1 10*3/uL0.0-0.45[facility] [id number] [address] [facility] 21054Qsyfvmubg # (Auto)April 30, 2025 9:00amSeptember 2024 10:31pm0.1 10*3/uL0.0-0.2FMag[facility] [id number] [address] [facility] 51463Cwvnjlprs # (Auto)May 30, 2025 7:31pmOctober 2024 7:43pm0.0 10*3/uL0.0-0.2FMag[facility] [id number] [address] [facility] 83292Kflrzaewgkt TimeOctober 2024 7:31pmOctober 2024 8:15pm13.0 sAbove high normal9.0-12.9A hematocrit value greater than 55% may lead to inaccurate results in coagulation testing. Patientshaving hematocrit values >55% require a special collection tube for coagulation studies. Please c ontact the laboratory at [phone] for redraw instructions.[facility] [id number] [address] [facility] 35114Pzwjgcxgb Time International RatioOctober 2024 7:31pm May 30, 2025 8:15pm1.1INR Therapeutic Range A) Pre- and Peroperative OAT started two weeks before surgery. NOT HIP SURGERY: 1.5 - 2.5 HIP SURGERY: 2 - 3B) Primary and secondary prevention of venous THROMBOSIS: 2 - 3C) Active venous thrombosis, pulmonary embolismand prevention of recurrent venous thrombosis: 2 - 3D) Prevention of arterial thromboembolismincluding patients with mechanical heart valves: 3 - 4.5FMag[facility] [id number] [address] [place] [address] 96065Rmlfnwiqk Partial Thromboplast TimeOctober 2024 7:31pm May 30, 2025 8:15pm30.2 s25.1-36.5A hematocrit value greater than 55% may lead to inaccurate results in coagulation testing. Patientshaving hematocrit values >55% require a special collection tube for coagulation studies. Please c ontact the laboratory at [phone] for redraw instructions.[facility] [id number] [address] [facility] 627[address]Xapzu ColorOctober 2024 9:10pmOctober 2024 10:22pm YellowYellowCleveland Clinic South [facility]inte [facility] [id number] [address] [place] [address] 85002Rmvep AppearanceOctober 2024 9:10pmOctober 2024 10:22pmClearClearCleveland Clinic [facility] [id number] [address] [place] [address] 30832Obrqb Specific GravityOctober 2024 9:10pmOctober 2024 10:22pm>1.050Above high normal1.001-1.030[facility] [id number] [address] [place] [address] 17730Ckqzl pHOctober 2024 9:10pmOctober 2024 10:22pm6.5 5.0-9.0[facility] [id number] [address] [place] [address] 29880Mgukg Leukocyte EsteraseOctober 2024 9:10pmOctober 2024 10:22pm2+Above high normalNegMad[facility] [id number] [address] [place] [address] 82312Qpuke NitriteOctober 2024 9:10pmOctober 2024 10:22pmNegativeNegMadison Health Ctr [id number] [address] [place] [address] 90711Gzjrb ProteinOctober 2024 9:10pmOctober 2024 10:22pmNegative mg/dLNegMadison Health [facility] [id number] [address] [facility] 65581Ymkfm Glucose (UA)May 30, 2025 9:10pmOctober 2024 10:22pmNormal mg/dLNormalC[facility] Clinic [facility] [id number] [address] [facility] 36332Hbjbe KetonesOctober 2024 9:10pmOctober 2024 10:22pmNegativeNegativeC[facility] Clinic [facility] [id number] [address] [facility] 93154Byxmn UrobilinogenOctober 2024 9:10pmOctober 2024 10:22pm2 mg/dLAbove high normalNormalC[facility] Clinic [facility] [id number] [address] [facility] 16929Xyoul BilirubinOctober 2024 9:10pmOctober 2024 10:22pmNegativeNegativeC[facility] Clinic [facility] [id number] [address] [facility] 64270Jhzel Occult BloodOctober 2024 9:10pmOctober 2024 10:22pmNegativeNegativeC[facility] Clinic [facility] [id number] [address] [facility] 14558Mdzhcrs LevelSeptember 2024 9:00amSeptember 2024 10:39pm89 mg/tC52-581FKV recommended reference rangeRandom Glucose Reference Range is dependent on time and content of last meal. Glucose of more than 200 mg/dL in a nonstressed, ambulatory subject supports the diagnosisof Diabetes Mellitus.[facility] [id number] [address] [facility] 85566Nohdbcn LevelOctober 2024 7:31pmOctober 2024 8:03pm 86 mg/rO24-198VVN recommended reference rangeRandom Glucose Reference Range is dependent on time and content of last meal. Glucose of more than 200 mg/dL in a nonstressed, ambulatory subject supports the diagnosisof Diabetes Mellitus. [facility] [id number] [address] [facility] 38598Ffkbl Urea NitrogenSeptember 2024 9:00amSeptember 30th, 2025 10:39pm14 mg/dL02-22[facility] [id number] [address] [facility] 50096Zpggd Urea NitrogenOctober 2024 7:31pmOctober 2024 8:03pm12 mg/dL02-22[facility] [id number] [address] [facility] 04998QvckgkzeylMpcbzxtfr 2024 9:00amSeptember 2024 10:39pm0.70 mg/dL0.60-1.20[facility] [id number] [address] [facility] 01850YynpuziyciBysyuxa 2024 7:31pmOctober 2024 8:03pm 0.76 mg/dL0.60-1.20[facility] [id number] [address] [facility] 95078Tpfizqqqy GFR (CKD-EPI)April 30, 2025 9:00amSeptember 2024 10:39pm> 60.0 mL/MinCleveland Clinic [facility]inte [facility] [id number] [address] [facility] 78038Qgvgmfqbx GFR (CKD-EPI)May 30, 2025 7:31pmOctober 2024 8:03pm> 60.0 mL/MinC[facility] Clinic [facility] [id number] [address] [place] 0108470Sodium LevelSeptember 2024 9:00amSeptember 2024 10:96ey080 mmol/N603-908LebwtjjoyCleveland Clinic [facility] [id number] [address] [place] 0108470Sodium LevelOctober 2024 7:31pmOctober 2024 8:03pm 140 mmol/T724-373WlxfojapjCleveland Clinic [facility] [id number] [address] [place] 0108470Potassium LevelSeptember 2024 9:00amSeptember 2024 10:39pm4.4 mmol/L3.5-5.1FMag[facility] [id number] [address] [place] 0108470Potassium LevelOctober 2024 7:31pmOctober 2024 8:03pm4.0 mmol/L3.5-5.1FMag[facility] [id number] [address] [facility] 85838Hjunpsje LevelSeptember 2024 9:00amSeptember 2024 10:82uj173 mmol/Z74-521MtoobtqmzC[facility] Clinic [facility] [id number] [address] [facility] 27369Qzhdhmks LevelOctober 2024 7:31pmOctober 2024 8:88uf256 mmol/LAbove high dxdhry97-469AfnvtxsafCleveland Clinic [facility] [id number] [address] [facility] 08816Pllbnp Dioxide LevelSeptember 2024 9:00amSeptember 2024 10:39pm25.7 mmol/L21.0-31.0[facility] [id number] [address] [facility] 68440Fzkvwd Dioxide LevelOctober 2024 7:31pmOctober 2024 8:03pm25.1 mmol/L21.0-31.0[facility] [id number] [address] [facility] 60698Ymgkc GapSeptember 2024 9:00amSeptember 2024 10:39pm12.7 mEq/L6.0-15.0[facility] [id number] [address] [facility] 77788Kusuf GapOctober 2024 7:31pmOctober 2024 8:03pm9.9 mEq/L6.0-15.0[facility] [id number] [address] [facility] 94664Kumtyoc LevelSeptember 2024 9:00amSeptember 2024 10:39pm10.2 mg/dL8.6-10.3FMag[facility] [id number] [address] [facility] 70598Eiwhztw LevelOctober 2024 7:31pmOctober 2024 8:03pm 9.4 mg/dL8.6-10.3FMagr[facility] [id number] [address] [facility] 24982Qojdk ProteinSeptember 2024 9:00amSeptember 2024 10:39pm7.1 g/dL6.4-8.9[facility] [id number] [address] [facility] 87262Vrlvf ProteinOctober 2024 7:31pmOctober 2024 8:03pm 6.7 g/dL6.4-8.9[facility] [id number] [address] [facility] 76360FhxdqvjVysjgvbkh 2024 9:00amSeptember 2024 10:39pm 4.7 g/dL3.5-5.7FMagruder [facility] [id number] [address] [facility] 02629TrykdlnJzymxxl 2024 7:31pmOctober 2024 8:03pm4.4 g/dL3.5-5.7FMagruder [facility] [id number] [address] [facility] 16150UzxxbxbiGzxxfefui 2024 9:00amSeptember 2024 10:39pm 2.4 g/dLCleveland Clinic [facility]inte [facility] [id number] [address] [facility] 86541CgacnnbwPnwmbqk 2024 7:31pmOctober 2024 8:03pm2.3 g/dLCleveland Clinic [facility]inte [facility] [id number] [address] [place] [address] 89916Ihveyce/Globulin RatioSeptember 2024 9:00amSeptember 2024 10:39pm2.0[facility] [id number] [address] [place] [address] 48151Oaeushw/Globulin RatioOctober 2024 7:31pmOctober 2024 8:03pm1.9[facility] [id number] [address] [place] [address] 67804Fenrp BilirubinSeptember 2024 9:00amSeptember 2024 10:39pm0.6 mg/dL0.3-1.0[facility] [id number] [address] [facility] 78901Hneti BilirubinOctober 2024 7:31pmOctober 2024 8:03pm0.5 mg/dL0.3-1.0[facility] [id number] [address] [facility] 88112Xafwmurjy Amino Transf (AST/SGOT)April 30, 2025 9:00am April 30, 2025 10:39pm20 U/D76-11QannpxtllCleveland Clinic [facility] [id number] [address] [facility] 66075Zhtkmeuhs Amino Transf (AST/SGOT)May 30, 2025 7:31pm May 30, 2025 8:03pm23 U/X70-94MgzltvingC[facility] Clinic [facility] [id number] [address] [place] [address] 45226Hifwvrn Aminotransferase (ALT/SGPT)April 30, 2025 9:00am April 30, 2025 10:39pm15 U/L7-52[facility] [id number] [address] [place] [address] 23801Snsownu Aminotransferase (ALT/SGPT)May 30, 2025 7:31pm May 30, 2025 8:03pm16 U/L7-52[facility] [id number] [address] [place] [address] 81072Vanfmsxb PhosphataseSeptember 2024 9:00amSeptember 2024 10:39pm60 U/V98-569XhwjreptzCleveland Clinic [facility] [id number] [address] [place] [address] 20897Zfzluosw PhosphataseOctober 2024 7:31pmOctober 2024 8:03pm51 U/E68-799CawezjjpxC[facility] Clinic [facility] [id number] [address] [place] [address] 48693Spqchnw LevelSeptember 2024 9:00amSeptember 2024 10:39pm29 U/F66-967XcmronhjoCleveland Clinic [facility]inte [facility] [id number] [address] [place] [address] 95930GyygadYhrkpgcqu 2024 9:00amSeptember 2024 10:39pm 26.0 U/L11.0-82.0[facility] [id number] [address] [place] [address] 68350CbvesnYgktbib 2024 7:31pmOctober 2024 8:02pm14.0 U/L11.0-82.0[facility] [id number] [address] [facility] 10237Ftfehkba Creatinine Clearance (ChemSeptember 2024 9:00am April 30, 2025 10:39pmN/[facility] [id number] [address] [facility] 04961Csegjgnu Creatinine Clearance (ChemOctober 2024 7:31pm May 30, 2025 8:03pm51.01[facility] [id number] [address] [facility] 80364Elhtl Drug Screen (T)April 30, 2025 9:15amOctober 2024 4:09pmFinal. TOXASSURE COMP DRUG ANALYSIS,UR= Test Result Flag UnitsDrug Present Lorazepam 741 ng/mg creat Source of lorazepam is a scheduled prescription medication. Carboxy-THC10 ng/mg creat Carboxy-THC is a metabolite of tetrahydrocannabinol (THC). Source of THC is most commonly herbal marijuana or marijuana-based products, but THC is also present in a scheduled prescription medication. Trace amounts of THC can be present in hemp and cannabidiol (CBD) products. This test is not intended to distinguish between yczfl-6-myxopvxfanaxymfljfzm, the predominant form of THC in most herbal or marijuana-based products, and uscrd-4-reockcxtsmvypdlewyyl. Morphine 35 ng/mg creatNormorphine 80 ng/mg creat Potential sources of morphine include administration of codeine or morphine, use of heroin, or ingestion of poppy seeds. Normorphine is an expected metabolite of morphine. Oxymorphone 36 ng/mg creat Noroxycodone 139 ng/mg creat Noroxymorphone 64 ng/mg creat Oxymorphone, n oroxycodone and noroxymorphone are expected metabolites of oxycodone. Noroxymorphone is an expectedmetabolite of oxymorphone. Sources of oxycodone and/or oxymorphone include scheduled prescription medications. Pregabalin PRESENT Topiramate PRESENT Trazodone PRESENT 1,3 chlorophenyl piperazine PRESENT 1,3-chlorophenyl piperazine is an expected metabolite of trazodone. Acetaminophen PRESENT======= Test Result Flag Units Ref Range Creatinine 211 mg/dL >=20 Declared Medications: Medication list was not provided. For clinical consultation, please call . Performed at: [facility] [address] [id number] Director: Laila Neff, Phone: [phone] Microbiology Results Procedure Source Result Collection Date/Time Result Date/Time Result Comment Performing Site Stool Occult Blood (JOSE) Stool May 30, 2025 7:42pmOct2024 7:59pmPaulding [facility] Hospital [id number] [address] [place], [place] [address] Diagnostic Imaging Reports Author Jovanni Stein [facility] HospitalReport Date/TimeOct2024 9:12pm [facility] Main [place] [address] [place] [address] CT Scan Report Signed Patient: Taya Carbone MR#: [id number] : 1955 Acct:[id number] Age/Sex: 69 / F ADM Date: 5 Loc: ER Room: Type: [facility] ER Attending Dr: Copies to: Mani Valle PA-C~ Ordering Provider: Mani Valle PA-C Date of Service: 05/30/25 CT/CT abdomen pelvis w con: Left side abdominal pain,history of diverticuliti CT ABDOMEN AND PELVIS WITH INTRAVENOUS CONTRAST: CLINICAL HISTORY: Abdominal pain, nausea, blood in stool COMPARISON: 02/04/2025 TECHNIQUE: Spiral images were obtained through the abdomen and pelvis followingthe administration of intravenous contrast. This CT exam was performed using one or more following dose reduction techniques: Automated exposure control, adjustment of the mA and/or kV according to patient size, or use of iterative reconstruction technique. FINDINGS: Lung Bases: [Lung bases are clear.] Organs:Scattered hepatic hypodensities noted subcentimeter is likely a cyst. Common bile duct 1.1 cm likely related to physiologic ectasia from prior cholecystectomy. Otherwise the liver, spleen, adrenals, kidneys, and pancreas are unremarkable.[ GI: Mild to moderate retained stool throughout the colon. No evidence of bowel obstruction. Postsurgical changes involving the cecum from appendectomy. Colonic diverticulosis.[Moderate wall thickening rectum with details enhancement noted. This may suggest proctitis. Pelvis:[Uterus atrophic. No suspicious adnexal mass. Bladder grossly unremarkable as visualized] Peritoneum/Retroperitoneum:No free air or free fluid. Aortic vascular calcifications. Aorta is not aneurysmal.[ Abd wall/Bones:Multilevel degenerative changes throughout the lumbar spine. Moderate severe disc space disease and foraminal narrowing L5-S1.[ CT/CT abdomen pelvis w con IMPRESSION: Moderate rectal wall thickening may raise possibility for proctitis. Colonic diverticulosis. Otherwise stable chronic findings. Impression dictated by: Jovanni Stein M.D. 05/30/2025 9:12 PM Dictation Location: [facility]--29 Transcribed By: [facility] 05/30/252111 Dictated By: Jovanni Stein MD 05/30/252107 Signed By: <Electronically signed by Jovanni Stein MD in [place]> 05/30/252111 Vital Signs Vital Reading Result Reference Range Collection Date/Time Height 62 [in_i] May 30, 2025 6:44nsKhvjcd97.43 kgOctober 2024 6:50pmBody Temperature 98.1 [degF]97.6-99.0October 2024 6:50pmHeart Rate58 /dox13-800Ldjjswt 2024 10:10pmRespiratory rate16 /ojq39-88Yjyvhxu 2024 10:10pmOxygen saturation by Pulse nfmvsigj79 %95-100October 2024 10:10pmBP Gmpmuhjr890 mm[Hg]100-140October 2024 10:10pmBP Xowsrkpvc95 mm[Hg]60-100October 2024 10:10pm Advance Directives Advance Directive Response Recorded Date/ Time Advance Directives No April 7:57pm Insurance Providers Guarantor Taya Carbone Address [address] [facility] [phone] Info.Home Phone: Coverage Status Update:2025 Payer Group Member ID Coverage Type Subscriber Relationship to Subscriber Effective Date Expiration Date Medicaid [id number] [place] Id: [id number] [address] [facility] [address] Home Phone: Email: Declined 11.10.20SelfMedicare [id number] [place] Id: [id number] [address] [facility] [address] Home Phone: Email: Declined 11.10.20[facility] [id number] [place] Id: [id number] [address] [facility] [address] Home Phone: Email: Declined 11.10.20Self Encounters Encounter Location(s) Arrival/Admit Date Discharge/Departure Date Discharge/Departure Disposition Provider(s) Non-patient / Non-visit -[facility] April 11, 2025 1:42pm [facility]00[facility] 2024 9:01amDischarged to home care or self care (routine discharge)Jennifer Samayoa [facility]ep[facility]ed [facility] May 07, 2025 7:25amOctober 2024 7:26amDischarged to home care or self care (routine discharge)Ginger Horn NP-CRegistered [facility] May 09, 2025 10:00ASIM Seayeparted Emergency-Emergency RoomOctober 2024 6:43pmOctober 2024 10:13pmDischarged to home care or self care (routine discharge) Plan of Treatment Future Tests Future scheduled test information is unavailable Pending Tests Test Name Ordered Date Scheduled Date Urine RBC May 30, 2025 9:10pm Urine WBCOctober 2024 9:10pmUrine Squamous Epithelial CellsOctober 2024 9:10pmUrine BacteriaOctober 2024 9:10pm Future Visits Future appointment information is unavailable Future Procedures Procedure Name Ordered Date Scheduled Date Dipstick and Microscopic May 30, 2025 9:47 pm May 30, 2025 9:10pm Future Medications Future medication information is unavailable Patient Instructions Instruction Admit Date Proctitis May 30, 2025 6 :43pm Hospital Discharge Instructions Additional Instructions Recommend follow-up with your general surgeon or gastroenterology. Begin taking antibiotics as prescribed. It is very important that you follow up with your primary care provider in the next 2-3 days unless instructed to do otherwise. If you do not have a primary care provider, you can contact [facility] and ask about being established for primary care services. If you require specialist follow up, such as with an orthopedic physician, assignment manager, urologist, or other medical specialty, you should contact the specialty clinic as soon as possible to schedule a follow up appointment. If you are established with a specialist, you can contact your preferred physician for follow up. If you are not already established with the specialist you need, you may have contact information provided to you with these discharge instructions. If you are being prescribed medications, take exactly as prescribed. Antibiotics, if prescribed, should be taken until the entire course is completed. You should not have left over antibiotics. Continue to take any previously prescribed home medications unless instructed otherwise. If you are experiencing fever or mild to moderate pain, you should first take Tylenol and/or anti-inflammatory medication. Important not to take multiple anti-inflammatory medication at the same time, unless instructed to do so otherwise by your PCP. Medications, if prescribed to treat pain from the emergency department, are intended to provide relief for severe pain that is not relieved by other methods of pain relief, you should use these medications cautiously as many are known to cause sedation/sleepiness, increased risk for falls, and other effects such as constipation. If your symptoms worsen please return to the ED or if you have any other concerns
--- OUTSIDE RECORDS SUMMARY | 2025-06-05 14:31 | XMS_ITS | Clinical Summary ---
Author Organization [facility] Address [address] [place] [address] Care Team Providers Care Hairspring Inspector Name Role Phone Jennifer Samayoa NP Unavailable Marty Diallo MD Primary Care Provider [phone] Allergies Active AllergyReactionsCriticalityNoted HfgpMxwmvhokWjxhohpsxWfovsfo61/19/2024 Medications MedicationSigDispense QuantityRefillsLast FilledStart DateEnd DateStatus acetaminophen-codeine (Tylenol w/ Codeine #3) 300-30 MG tablet 03/29/2023ctive amLODIPine (Norvasc) 5 MG tablet Take 1 tablet by mouth DailyActive atorvastatin (Lipitor) 20 MG tablet Take 1 tablet by mouth at bedtimeActive Symbicort 160-4.5 MCG/ACT inhaler Inhale 2 puffs in the morning and 2 puffs before bedtime.Active cyclobenzaprine (Flexeril) 10 MG tablet 04/16/2023ctive Depakote 500 MG EC tablet Take 500 mg by mouth DailyActive docusate sodium (Colace) 100 MG capsule Take 100 mg by mouth Daily as needed for constipationActive fluticasone (Flonase) 50 MCG/ACT nasal spray 1 (one) time each day at the same timeActive mlilxjdm-qphbbiclg-rvoqliphkbmzfa (Cortisporin) 3.5-49340-3 otic suspension every 8 (eight) hours07/13/2022ctive lactulose (Chronulac) 10 GM/15ML solution 1 (one) time each day at the same timeActive Ambien 5 MG tablet 1 (one) time each day at the same timeActive traZODone (Desyrel) 100 MG tablet Take 150 mg by mouth at sdlqysv1806/05/2023ctive hydrOXYzine HCl (Atarax) 10 MG tablet every 12 (twelve) hours09/29/2023ctive busPIRone (Buspar) 5 MG tablet Take 5 mg by mouth in the morning and 5 mg before bedtime.12/06/2023ctive cholecalciferol (Vitamin D-3) 10 MCG (400 UNIT) tablet 06/24/2023ctive cyanocobalamin (Vitamin B-12) 1000 MCG tablet Take 1,000 mcg by mouth Daily06/24/2023ctive dicyclomine (Bentyl) 10 MG capsule Take 10 mg by mouth in the morning and 10 mg in the evening and 10 mg before bedtime.10/25/2023ctive doxycycline (Vibra-Tabs) 100 MG tablet Take 100 mg by mouth Daily08/31/2023ctive hydrocortisone 2.5 % cream 03/30/2023ctive lactulose (Enulose) 10 GM/15ML solution oral solution 10/27/2023ctive pantoprazole (ProtoNix) 40 MG EC tablet Take 40 mg by mouth in the morning and 40 mg before bedtime.12/01/2023ctive Trintellix 5 MG tablet 11/10/2023ctive LORazepam (Ativan) 1 MG tablet Take 0.5 mg by mouth in the morning and 0.5 mg before bedtime.Active topiramate (Topamax) 25 MG tablet Indications:Chronic migraine without aura without status migrainosus, not intractableTAKE 1 TABLET BY MOUTH EVERY NIGHT AT BEDTIME 30 tablet 5Active deutetrabenazine (Austedo) 9 MG tablet Indications:Tardive dyskinesiaTake one tablet in the morning one tablet in the afternoon and two tablets before bedtime. 120 tablet 5Active cetirizine (ZyrTEC) 10 MG tablet 5Active Active Problems ProblemNoted DateDiagnosed DateChronic gastritis without biikyhap18/04/2025 Diverticulosis large intestine w/o perforation or abscess w/o ocqemwpt62/04/2025 Diverticulitis of large intestine without perforation or abscess without wbdebjzd03/04/2025ppendicitis, acute01/31/2024bdominal pain01/02/2024cute blood loss ofrprp2401/02/2024cute UTI01/02/2024KI (acute kidney injury) 01/02/2024ltered mental pvtbrh3701/02/20245455Gjnecte74/03/5861Jmukhfbslxu37/03/2024 Xbrpudydwu54/03/2024typical chest pain01/02/2024ontact /03/2024 Lanzkzbwjc18/03/5895Peznipog56/03/1108Dpbcmpals90/03/8389Gqeplfxagdaa18/03/2024 Effusion, right knee01/02/2024GERD (gastroesophageal reflux disease)01/02/2024 Bright red rectal utxqgvwz04/03/2024Hemorrhagic shock01/02/2024History of rectal undrnqxd29/03/2024History of /03/8243Nobbmzzwzzlk00/03/2024Knee pain, left01/02/20242294Hpzduokdgrxu04/03/2024Lithium wloyurio19/03/2024Lithium use 01/02/2024Maltracking of left ijxvjvi8101/02/20246087Ooysfe87/03/2024Metabolic cltigaddwmzjlx34/03/2024Osteoarthritis of knee01/02/2024olysubstance abuse 01/02/2024olitis, enjqcitutd68/03/2024Sinus /03/2024Stercoral ulcer of anus01/02/2024ocaine abuse01/02/2024Strain of lumbar tpcxyo7901/02/2024 Suicidal rbznaqph35/03/2024ervical spinal uxyznpwl51/21/2024 Assessment & Plan (12/14/2023 12:54 PM EDT): *10/20/2023 Yoandy Griffith Cervical spinal stenosis at C3-C4 identified on recent MRI. The patient dose have symptoms consistent with occipital neuralgia and chronic complaints of headaches which certainly may be caused by degenerative changes in the cervical spine. PLAN: - pt refused pain management and surgical opinion. Migraine without aura and with status migrainosus, not llvcsdqjoeq34/21/2024 Assessment & Plan (12/14/2023 12:56 PM EDT): *10/20/2023 Yoandy Griffith It is my impression that the patient has chronic migraine. The patient has trialed and failed Depakote, Zoloft, gabapentin and others. She was given samples of Qulipta and had an excellent response to this medication with substanital headache reduction. . Plan: Stop Depakote Start qulipta 30 mg po daily. Side effects discussed and patient wishes to proceed Chronotropic incompetence with sinus node xpoqxrncekt51/24/2024Hyperlipidemia 08/24/20239957Zruimpscm23/24/2024aroxysmal atrial hctvynnmpbos70/24/2024ipolar 1 qrjvikii30/24/2024Sick sinus akliqglo28/24/2024Internal hemorrhoid, bleeding 06/14/2023Other chronic pain02/08/2023 Assessment & Plan (12/14/2023 12:53 PM EDT): See above Drug-induced uyplydpmfmmc37/17/2020 Assessment & Plan (12/14/2023 12:52 PM EDT): *11/16/2022 Reba Martinez See above Long-term current use of vuattpj5204/21/2018Tardive kcqiljkztm48/21/2018Nicotine use fynxbnzx41/12/6971Iqypogqcswmk15/13/2018Essential hypertension, benign 02/10/2018Obesity, Class I, BMI 30-34.907 Encounters DateTypeDepartmentCare OtzqLiziqarhgoy74/16/2025 2:30 PM EDTOffice Visit [facility] [address] [place] [phone] Siddhartha Harper MD Left lower quadrant abdominal pain (Primary Dx); Diverticulosis large intestine w/o perforation or abscess w/o jumerkwp41/16/2025 Wohvot3003/21/2025Telephone [facility] [address] [place] [phone] Siddhartha Harper MD 03/21/2025Telephone [facility] [address] [place] [phone] Yane Durbin MA calling for a refill on pain zqezrjegdl49/21/2025Travelfrom Last 3 Months Immunizations ImmunizationAdministration DatesNext DueInfluenza, Injectable, MDCK, preservative free07/17/2014Influenza, injectable, bupyfrcoqrwv69/16/2020 Influenza, injectable, quadrivalent, preservative free09/08/2017,05/14/2015 Influenza, seasonal, rjdcciuspq63/29/2023,05/18/2022,05/01/2022,04/28/2021, 06/01/2020,05/22/2015Moderna SARS-CoV-2 Booster Qdcqjlibnts08/21/2022Moderna SARS-CoV-2 Qqkkcjampek75/05/2023,11/06/2020,1Pneumococcal Conjugate PCV Family History Medical HistoryRelationNameCommentsHeart attackFatherHypertensionFather HypertensionMotherParkinsonismOtherHeart diseaseSiblingHypertensionSibling RelationNameStatusCommentsFatherDeceasedMaternal GrandfatherDeceasedMaternal GrandmotherDeceasedMotherDeceasedOtherPaternal family HxPaternal Grandfather DeceasedPaternal GrandmotherDeceasedSibling Social History Tobacco UseTypesPacks/DayYears UsedDateSmoking Tobacco: Some DaysCigarettes0.3 1.8Started: 2023; Last attempted to quit: 2019Smokeless Tobacco: NeverAlcohol UseStandard Drinks/WeekCommentsNever0 (1 standard drink = 0.6 oz pure alcohol) caffeine 1 cups coffee dailyCommentsUnknownSex and Gender Information ValueDate RecordedSex Assigned at BirthNot on fileLegal IesDijeud14/15/2023 6:38 PM EDTGender IdentityNot on fileSexual OrientationNot on file Last Filed Vital Signs Vital SignReadingTime TakenCommentsBlood Fdmjjkdf860/8006 10:41 AM EDT Xwywy6535 11:05 AM EBSXfbymlfprbh94.3 ??C (97.4 ??F)11/02/2023 8:01 AM EDTRespiratory Ybkl179402/07/2024 3:10 PM EDTOxygen Orsfmiwhyj66%09/26/2024 11:05 AM ESTInhaled Oxygen Concentration--Gpehsk93.6 kg (127 lb)04/16/2025 2:48 PM EDT Ssgjjv541.5 cm (5' 2 )03/04/2025 9:12 AM EDTBody Mass Index23.23003/04/2025 9:12 AM EDT Plan of Treatment DateTypeDepartmentCare Team (Latest Contact Info)Pemzuwgaayx07/24/2025 8:15 AM ESTOffice Visit [facility] [address] [place] [phone] Roger Santiago, DO [address] [place] [address] Health MaintenanceDue DateLast DoneCommentsCT Mrrhlcbndyds98/16/1954Colonoscopy 1953olorectal Cancer Fazkysnrn24/16/1954FIT-DNA1953FIT1953 FOBT1953 4115Gxjupmjijegoc66/16/0685Ipsmygdks21/14/202402/OVID-19 Vaccine ( season), 08/05/2022, 08/21/2021, Additional history existsInfluenza Vaccine (#1)5004/28/2024, 03/29/2023, 05/18/2022, Additional history existsPneumococcal Vaccine: 65+ YearsCompleted 05/10/2024, 07/06/2022 Procedures Procedure NamePriorityDate/TimeAssociated DiagnosisCommentsBI MAMMOGRAM SCREENING EUJRJPIJDSrhytud09/14/2023 12:00 PM EST Encounter for screening for malignant neoplasm of cervix Encounter for screening mammogram for malignant neoplasm of breast Encounter for gynecological examination (general) (routine) without abnormal findings Encounter for screening for osteoporosis Asymptomatic menopausal state from Last 3 Months or Most Recently Relevant to Health Maintenance Results * Bilateral screening mammogram (09/14/2022 12:00 PM EST)Anatomical Region LateralityModalityBreastBilateralMammographySpecimen (Source)Anatomical Location / LateralityCollection Method / VolumeCollection TimeReceived Time Narrative 09/14/2022 12:00 PM EST PERFORMED AT [facility] LOCATION:[id number] Procedure Note CONVERSION, GENERIC - 02/04/2023 PERFORMED AT [facility] LOCATION:[id number] Authorizing ProviderResult TypeResult StatusAzucena Gale MDIMNathaly BI PROCEDURES Final Result from Last 3 Months or Most Recently Relevant to Health [place] [address] Care Teams Team MemberRelationshipSpecialtyStart DateEnd Marty Diallo MD [address] [place] [id number] PCP - GeneralFamily Medicine10/20/23 Jennifer Samayoa NP [address] [place] [id number] Referring PhysicianInternal Medicine10/20/23
--- OUTSIDE RECORDS SUMMARY | 2025-06-05 14:31 | XMS_ITS | Patient Health Record ---
Author Organization [facility] Address [address] [place] [address] Care Team Providers Care Incident Response Analyst Name Role Phone Jennifer Samayoa Primary Care Provider [phone] Delaney Verdin Unavailable [phone] Allergies No Known Allergies Results Component Value Reference Range Flag Notes UBASE - Urinary Tract Infect ion (HTRx) Reviewed date:05/01/2025 01:16:25 PM Interpretation: Performing Lab: Notes/Report: Acinetobacter baumannii 0 19.961 - 24.689 p pm Acinetobacter baumanniiNot Dctwsqef72.961 - 24.689 ppmCitrobacter freundii0 23.000 - 32.015 ppmCitrobacter freundiiNot Ozgrxvge80.000 - 32.015 ppm Enterobacter aerogenes, ebxyneq363.000 - 32.290 ppmEnterobacter aerogenes, cloacaeNot Ujycskle15.000 - 32.290 ppmEnterococcus faecalis, giejpus529.000 - 33.043 ppmEnterococcus faecalis, faeciumNot Xttndtcr16.000 - 33.043 ppm Escherichia bukd939.000 - 28.500 ppmEscherichia coliNot Ruefhxgv65.000 - 28.500 ppmKlebsiella pneumoniae, tzxshlu385.000 - 31.865 ppmKlebsiella pneumoniae, oxytocaNot Vmokrkmy29.000 - 31.865 ppmMorganella ssklqumi127.961 - 24.689 ppm Morganella morganiiNot Hekertvl47.961 - 24.689 ppmProteus mirabilis, vulgaris0 23.000 - 28.500 ppmProteus mirabilis, vulgarisNot Rmzalzkr84.000 - 28.500 ppm Pseudomonas puyvctgrwb682.000 - 31.801 ppmPseudomonas aeruginosaNot Detected 23.000 - 31.801 ppmStaphylococcus .000 - 31.595 ppmStaphylococcus aureusNot Fecginjj47.000 - 31.595 ppmStreptococcus agalactiae (Group B Strep)0 26.000 - 32.435 ppmStreptococcus agalactiae (Group B Strep)Not Jpekdccy14.000 - 32.435 ppmCandida albicans, parapsilosis, estzksyasg683.000 - 30.347 ppmCandida albicans, parapsilosis, tropicalisNot Hrrpkqyl11.000 - 30.347 ppmCandida glabrata (Nakaseomyces glabratus)023.000 - 31.618 ppmCandida glabrata (Nakaseomyces glabratus)Not Jaqmulpe94.000 - 31.618 ppmCandida krusei (Pichia kudriavzevii)023.000 - 30.873 ppmCandida krusei (Pichia kudriavzevii)Not Gthsxvfm62.000 - 30.873 ppmSerratia xyqawclqmf626.000 - 31.581 ppmSerratia marcescensNot Czmfvyur66.000 - 31.581 ppmStreptococcus pyogenes (Group A strep)0 19.961 - 24.689 ppmStreptococcus pyogenes (Group A strep)Not Xzbiyocn72.961 - 24.689 ppmStaphylococcus zyndnmflumisy248.961 - 24.689 ppmStaphylococcus saprophyticusNot Ntzthayd61.961 - 24.689 ppmStaphylococcus epidermidis, haemolyticus, zutznxktysl214.961 - 24.689 ppmStaphylococcus epidermidis, haemolyticus, lugdunensisNot Eebwbzjx56.961 - 24.689 ppmUrine Drug Screen Reviewed date:05/31/2025 11:55:23 AM Interpretation: Performing Lab: Notes/Report: pHnegSGnegCreatenegTHCnegCOCnegAMPnegOPIposMAMPnegPCPnegBARnegBZOposMTOnegMDMA negOXYposBUPnegToxassure, Urine Reviewed date:05/08/2025 10:14:27 AM Interpretation: Performing Lab:, [facility] [place], [address] [place] Notes/Report: Reason for Exam Uncomplicated opioid useToxassure, Urine SummaryFINAL. TOXASSURE COMP DRUG ANALYSIS,UR Test Result Flag Units Drug Present Lorazepam 741 ng/mg creat Source of lorazepam is a scheduled prescription medication. Carboxy-THC 10 ng/mg creat Carboxy-THC is a metabolite of tetrahydrocannabinol (THC). Source of THC is most commonly herbal marijuana or marijuana-based products, but THC is also present in a scheduled prescription medication. Trace amounts of THC can be present in hemp and cannabidiol (CBD) products. This test is not intended to distinguish between qldut-8-gmdccvxwxepojwcivele, the predominant form of THC in most herbal or marijuana-based products, and pcujk-0-pwvcejivxquosqdgxvgq. Morphine 35 ng/mg creat Normorphine 80 ng/mg creat Potential sources of morphine include administration of codeine or morphine, use of heroin, or ingestion of poppy seeds. Normorphine is an expected metabolite of morphine. Oxymorphone 36 ng/mg creat Noroxycodone 139 ng/mg creat Noroxymorphone 64 ng/mg creat Oxymorphone, noroxycodone and noroxymorphone are expected metabolites of oxycodone. Noroxymorphone is an expected metabolite of oxymorphone. Sources of oxycodone and/or oxymorphone include scheduled prescription medications. Pregabalin PRESENT Topiramate PRESENT Trazodone PRESENT 1,3 chlorophenyl piperazine PRESENT 1,3-chlorophenyl piperazine is an expected metabolite of trazodone. Acetaminophen PRESENT Test Result Flag Units Ref Range Creatinine 211 mg/dL >=20 Declared Medications: Medication list was not provided. For clinical consultation, please call . Performed at: [facility] [address] [place] [id number] Seed Trucker: Laila Willard [facility], Phone: [phone] Complete Blood Count Auto Diff Reviewed date:05/01/2025 08:28:23 AM Interpretation: Performing Lab:, [facility] [place], [address] Notes/Report: Reason for Exam Diverticular diseaseWhite Blood Count4.23.8-11.6 [CFU]/mLN Uncorrected WBC4.23.8-11.6 10*3/uLNRed Blood Count4.973.60-5.00 10*6/uLN Ykoxdhpmrw48.511.8-15.4 g/uXUIqesqmcduj70.934.0-46.4 %HMean Corpuscular Volume 94.380-100 fLNMean Corpuscular Vroqqsiltv48.224.7-34.3 pgNMean Corpuscular HGB Conc33.132.0-35.0 g/dLNRed Cell Distribution Width14.611.9-15.3 %NPlatelet Count 557605-435 10*3/uLNMean Platelet Volume9.66.3-10.7 fLNNeutrophils % (Auto)54.4. %Lymphocytes % (Auto)34.8. %Monocytes % (Auto)7.9. %Eosinophils % (Auto)1.6. % Basophils % (Auto)1.3. %NRBC%0.30-0.5 /100{WBC}NNeutrophils # (Auto)2.31.8-7.7 10*3/uLNLymphocytes # (Auto)1.51.00-4.8 10*3/uLNMonocytes # (Auto)0.30.0-0.8 10*3/uLNEosinophils # (Auto)0.10.0-0.45 10*3/uLNBasophils # (Auto)0.10.0-0.2 10*3/uLNLipase Reviewed date:05/01/2025 08:16:12 AM Interpretation: Performing Lab: Notes/Report: pain Reason for Exam Diverticular disease;Generalized abdominal Reason for Exam Diverticular nrknaniUtiuox75.011.0-82.0 U/LNComprehensive Metabolic Panel Reviewed date:05/01/2025 08:38:34 AM Interpretation: Performing Lab:, [facility] [place], [address] [place] Notes/Report: Reason for Exam Diverticular disease Reason for Exam Diverticular disease;Generalized abdominal lnxpTmqdxbh2958-789 mg/dLN Random Glucose Reference Range is dependent on time and content of last meal. Glucose of more than 200 mg/dL in a nonstressed, ambulatory subject supports the diagnosis of Diabetes Mellitus. ADA recommended reference range Blood Urea Dpqusfrn658-42 mg/dLNCreatinine0.700.60-1.20 mg/uDQGpzccx050417-078 mmol/LNPotassium4.43.5-5.1 mmol/JSCzygenmn32682-376 mmol/LNCarbon Duprbfm77.7 21.0-31.0 mmol/EYMnzqlaa38.28.6-10.3 mg/dLNTotal Protein7.16.4-8.9 g/dLNAlbumin Level4.73.5-5.7 g/dLNGlobulin2.4Albumin/Globulin Ratio2.0Bilirubin,Total0.60.3- 1.0 mg/dLNAspartate Amino Hqvbzuelnag2506-97 U/LNAlanine Fpjdhuzrcuorpxhf012-87 U/LNAlkaline Npphxkxzsji0986-317 U/LNEstimated GFR>60.0Anion Gap12.76.0-15.0N Amylase Reviewed date:05/01/2025 08:28:31 AM Interpretation: Performing Lab: Notes/Report: Reason for Exam Diverticular disease Reason for Exam Diverticular disease;Generalized abdominal wjfeTwfgvfv7800-682 U/LNUrinalysis automated Reviewed date:04/30/2025 11:01:21 AM Interpretation: Performing Lab: Notes/Report: Urine-ColoryellowAppearanceclearSpecific Gravity1.020pH6.0GlucosenegProtein+ Occult BloodnegBilirubinnegUrobilinogen,Semi-Qn0.2 mg/dLNitrite, UrinenegKetones +WBC Esterase+UBASE - Urinary Tract Infection (HTRx) Reviewed date:07/07/2024 11:55:46 AM Interpretation: Performing Lab: Notes/Report: Real-Time polymerase chain reaction (TaqMan qPCR) was utilized for detection for all tested organisms and resistance genes. COVID-19 testing separately performed using [employer] COVID-19 Combo kit. Initiation of antimicrobial therapy prior to testing may affect results and can lead to the detection of non-living microorganisms. Detection of microbes must be correlated with current/recent antibiotic usage and patient signs and symptoms. Microbial sensitivity testing is not performed at this lab. Fund Accountant to CFU/mL equivalent thresholds were established basedon studies using known CFU/mL urine specimens performed at [facility] in [place], [place]. Testing performed by [facility] ([address], [place] [address]; CLIA# [id number]; Seed Trucker Joi Flores, PhD, [facility])). This test was developed, andits performance characteristics determined by [facility]. It has not been cleared or approved bythe FDA. However, such approval/clearance is not required, as the laboratory is regulated and qualified under CLIA to perform high-complexity testing. This test is used for clinical purposes and should not be regarded as investigational or for research. *Approximate copies of target nucleic acid per &micro;L (Low: <2,500 copies/&micro;L, Moderate: 2,500-50,000 copies/&micro;L, High: >50,000 copies/&micro;L) National Infectious Disease Consensus Data Potentially effective oral antibiotics, based on presence of detected microbes, antimicrobial resistance genes, and jace ional antimicrobial sensitivity data (see Summary Antibiogram).Acinetobacter baumannii0.01102.961 - 24.689 ppmAcinetobacter baumanniiNot Gsxzjegx86.961 - 24.689 ppmCitrobacter freundii0.08588.000 - 31.881 ppmCitrobacter freundiiNot Ohvjjfhs70.000 - 31.881 ppmEnterobacter aerogenes, cloacae0.72381.000 - 31.535 ppmEnterobacter aerogenes, cloacaeNot Fygoqjmb93.000 - 31.535 ppmEnterococcus faecalis, faecium0.67708.000 - 31.575 ppmEnterococcus faecalis, faeciumNot Hkwqbhtq37.000 - 31.575 ppmEscherichia coli0.83011.000 - 28.500 ppmEscherichia coliNot Ktojdhbp30.000 - 28.500 ppmKlebsiella pneumoniae, oxytoca0.41282.000 - 30.500 ppmKlebsiella pneumoniae, oxytocaNot Hpqboert25.000 - 30.500 ppm Morganella morganii0.05731.961 - 24.689 ppmMorganella morganiiNot Ovlezuus31.961 - 24.689 ppmProteus mirabilis, vulgaris0.37686.000 - 28.500 ppmProteus mirabilis, vulgarisNot Qrtvnqak47.000 - 28.500 ppmPseudomonas aeruginosa0.000 23.000 - 28.500 ppmPseudomonas aeruginosaNot Jljhnjil69.000 - 28.500 ppm Staphylococcus aureus0.20107.000 - 30.902 ppmStaphylococcus aureusNot Detected 26.000 - 30.902 ppmStreptococcus agalactiae (Group B Strep)0.40811.000 - 32.222 ppmStreptococcus agalactiae (Group B Strep)Not Bkbpyalr69.000 - 32.222 ppm Margaret albicans, parapsilosis, tropicalis0.81552.961 - 30.770 ppmCandida albicans, parapsilosis, tropicalisNot Cbcejfky20.961 - 30.770 ppmCandida glabrata (Nakaseomyces glabratus)0.47464.000 - 32.138 ppmCandida glabrata (Nakaseomyces glabratus)Not Uuduggdj67.000 - 32.138 ppmCandida krusei (Pichia kudriavzevii)0.08616.000 - 32.271 ppmCandida krusei (Pichia kudriavzevii)Not Ooukpwdc76.000 - 32.271 ppmSerratia marcescens0.51079.000 - 31.204 ppmSerratia marcescensNot Mxdslcrg73.000 - 31.204 ppmStreptococcus pyogenes (Group A strep) 0.08994.961 - 24.689 ppmStreptococcus pyogenes (Group A strep)Not Goagraqb83.961 - 24.689 ppmStaphylococcus saprophyticus0.36652.961 - 24.689 ppmStaphylococcus saprophyticusNot Amkrbhor00.961 - 24.689 ppmStaphylococcus epidermidis, haemolyticus, lugdunensis0.92452.961 - 24.689 ppmStaphylococcus epidermidis, haemolyticus, lugdunensisNot Eogvsork45.961 - 24.689 ppmUrinalysis automated Reviewed date:07/05/2024 03:00:40 PM Interpretation: Performing Lab: Notes/Report: Urine-ColoryellowAppearancecloudySpecific Gravity1.025pH6.0GlucosenegProteinneg Occult BloodnegBilirubinnegUrobilinogen,Semi-Qn0.2mg/dlNitrite, UrinenegKetones negWBC Esterase+Complete Blood Count and Diff Reviewed date:01/16/2025 08:18:07 AM Interpretation: Performing Lab:, [facility] [place], [address] [place] Notes/Report:Segmented Tasocxjcdkb9545-60 %BButppeqkdbv1280-33 %NReactive Oicbqhxfcwq22-47 %IZdgzptabe995-06 %MQgxkydiejeh17-2 %NPlatelet EstimateNormal NormalGiant Platelet Aycha3Dydlj PlateletsSlightWhite Blood Count4.53.8-11.6 [CFU]/mLNUncorrected WBC4.53.8-11.6 10*3/uLNRed Blood Count4.823.60-5.00 10*6/uL LUspxjsdxmy14.911.8-15.4 g/cHRCsnjkqogri02.934.0-46.4 %NMean Corpuscular Volume 93.180-100 fLNMean Corpuscular Lqeacxugwb31.824.7-34.3 pgNMean Corpuscular HGB Conc33.132.0-35.0 g/dLNRed Cell Distribution Width14.611.9-15.3 %NPlatelet Count 557206-203 10*3/uLNMean Platelet Volume8.36.3-10.7 fLNMonocyte Distribution Width17.010.00-20.00 %NRBC MorphologyNormalNormalPlatelet MorphologyNormalNormal Troponin I High Sensitivity Reviewed date:01/16/2025 08:19:30 AM Interpretation: Performing Lab:, [facility] [place], [address] [place] Notes/Report: The Troponin units of report have been changed to meet the Chest Pain Accreditation requirement, element EC5.M1l2. Troponin units are changed from pg/ml to ng/L. Also, the decimal is removed and results are in whole numbers.Troponin I High Sensitivity3 0-15NURINE - Urinary Tract Infection + High Risk Sexual Behavior (HTRx) Reviewed date:11/09/2024 02:37:30 PM Interpretation: Performing Lab: Notes/Report: Real-Time polymerase chain reaction (TaqMan qPCR) was utilized for detection for all tested organisms and resistance genes. Initiation of antimicrobial therapy prior to testing may affect results and can lead to the detection of non-living microorganisms. Detection of microbes must be correlated with current/recent antibiotic usage and patient signs and symptoms. Microbial sensitivity testing is not performed at this lab. Fund Accountant to CFU/mL equivalent thresholds were established based on studies using known CFU/mL urine specimens performed at [facility] in [place], [place]. Testing performed by [facility] ([address], [place] [address]; CLIA# [id number]; Seed Trucker Joi Flores, PhD, [facility])). This test was developed, and its performance characteristics determined by [facility]. It has not been cleared or approved by the FDA. However, such approval/clearance is not required, as the laboratory is regulated and qualified under CLIA to perform high-complexity testing. This test is used for clinical purposes and should not be regarded as investigational or for research. *Approximate copies of target nucleic acid per &micro;L (Low: <2,500 copies/&micro;L, Moderate: 2,500-50,000 copies/&micro;L,High: >50,000 copies/&micro;L) National Infectious Disease Consensus Data Potentially effective oral antibiotics, based on presence of detected microbes, antimicrobial resistance genes, and national antimicrobial sensitivity data (see Summary Antibiogram).Trichomonas vaginalis0.33935.000 - 32.119 ppmTrichomonas vaginalisNot Jkfpdzvu64.000 - 32.119 ppmStreptococcus pyogenes (Group A strep)0.34475.961 - 24.689 ppm Streptococcus pyogenes (Group A strep)Not Guxhebhf74.961 - 24.689 ppm Streptococcus agalactiae (Group B Strep)0.58708.000 - 32.222 ppmStreptococcus agalactiae (Group B Strep)Not Ixdjefye54.000 - 32.222 ppmStaphylococcus aureus 0.41550.000 - 30.902 ppmStaphylococcus aureusNot Nxvrfswd17.000 - 30.902 ppm Serratia marcescens0.42544.000 - 31.204 ppmSerratia marcescensNot Jvcqqhti45.000 - 31.204 ppmPseudomonas aeruginosa0.18782.000 - 28.500 ppmPseudomonas aeruginosaNot Jpwtlbvf92.000 - 28.500 ppmProteus mirabilis, vulgaris0.26165.000 - 28.500 ppmProteus mirabilis, vulgarisNot Jathzyow83.000 - 28.500 ppmNeisseria gonorrhoeae0.73059.000 - 32.117 ppmNeisseria gonorrhoeaeNot Klksjrqh42.000 - 32.117 ppmKlebsiella pneumoniae, oxytoca0.84587.000 - 30.500 ppmKlebsiella pneumoniae, oxytocaNot Llssvads41.000 - 30.500 ppmEscherichia coli0.55955.000 - 28.500 ppmEscherichia coliNot Jprqsqde72.000 - 28.500 ppmEnterococcus faecalis, faecium0.27477.000 - 31.575 ppmEnterococcus faecalis, faeciumNot Tyednvid04.000 - 31.575 ppmEnterobacter aerogenes, cloacae0.00233.000 - 31.535 ppmEnterobacter aerogenes, cloacaeNot Tejyrffr09.000 - 31.535 ppmCitrobacter freundii0.73479.000 - 31.881 ppmCitrobacter freundiiNot Zwfmhdrz26.000 - 31.881 ppmChlamydia trachomatis0.16392.000 - 31.467 ppmChlamydia trachomatisNot Girmuyrf69.000 - 31.467 ppmAcinetobacter baumannii0.98701.961 - 24.689 ppmAcinetobacter baumannii Not Hznvgjcb20.961 - 24.689 ppmMorganella morganii0.89219.961 - 24.689 ppm Morganella morganiiNot Piwzitbc62.961 - 24.689 ppmCandida albicans, parapsilosis, tropicalis0.91153.961 - 30.770 ppmCandida albicans, parapsilosis, tropicalisNot Jwoaslab61.961 - 30.770 ppmCandida glabrata (Nakaseomyces glabratus)0.73974.000 - 32.138 ppmCandida glabrata (Nakaseomyces glabratus)Not Gxjzqhni58.000 - 32.138 ppmCandida krusei (Pichia kudriavzevii)0.94954.000 - 32.271 ppmCandida krusei (Pichia kudriavzevii)Not Cywagmlk24.000 - 32.271 ppm Mycoplasma genitalium0.13196.961 - 24.689 ppmMycoplasma genitaliumNot Detected 19.961 - 24.689 ppmMycoplasma hominis0.95209.961 - 24.689 ppmMycoplasma hominis Not Duhuwafd44.961 - 24.689 ppmStaphylococcus saprophyticus0.40876.961 - 24.689 ppmStaphylococcus saprophyticusNot Dpjlumgq01.961 - 24.689 ppmStaphylococcus epidermidis, haemolyticus, sqllqpynmgk87.72653.961 - 24.689 ppmStaphylococcus epidermidis, haemolyticus, cdbmdaooehoCeipmbnt12.961 - 24.689 ppmUreaplasma urealyticum0.77471.961 - 24.689 ppmUreaplasma urealyticumNot Tavfdkgf76.961 - 24.689 ppmUreaplasma parvum0.00125.961 - 24.689 ppmUreaplasma parvumNot Detected 19.961 - 24.689 ppmUrinalysis automated Reviewed date:11/08/2024 01:50:03 PM Interpretation: Performing Lab: Notes/Report: Urine-ColoryellowAppearanceclearSpecific Gravity1.020pH6.0GlucosenegativeProtein +Occult BloodnegativeBilirubinnegtiveUrobilinogen,Semi-Qn0.2 mg/dLNitrite, Urine negativeKetones+WBC Esterase+Basic Metabolic Panel Reviewed date:08/01/2024 10:21:34 PM Interpretation: Performing Lab: Notes/Report:Avdrmax9751-114 mg/dLN Random Glucose Reference Range is dependent on time and content of last meal. Glucose of more than 200 mg/dL in a nonstressed, ambulatory subject supports the diagnosis of Diabetes Mellitus. ADA recommended reference range Blood Urea Qblkialb425-88 mg/tRKAjjhaf096486-388 mmol/LNPotassium4.03.5-5.1 mmol/UTGufrwawz82211-121 mmol/LNCarbon Mvswgpi99.621.0-31.0 mmol/LNCalcium9.5 8.6-10.3 mg/dLNCreatinine0.730.60-1.20 mg/dLNEstimated GFR>60.0Anion Gap11.46.0- 15.0 meq/LNCreatinine Clr Calc Tenfurcg84.75Hepatic Panel Reviewed date:08/01/2024 10:22:03 PM Interpretation: Performing Lab:, [facility] [place], [place] Notes/Report:Total Protein6.76.4-8.9 g/dLNAlbumin Level4.23.5-5.7 g/dLNGlobulin 2.5Albumin/Globulin Ratio1.7Bilirubin,Total0.50.3-1.0 mg/dLNBilirubin,Direct0.10 0.03-0.18 mg/dLNBilirubin,Indirect0.4Aspartate Amino Vdipcnnqadj7140-73 U/LN Alanine Jmxbpwfrdvlmilqr313-19 U/LNAlkaline Nydnnzsknty3227-055 U/LNLactic Acid Reviewed date:08/01/2024 10:21:44 PM Interpretation: Performing Lab:, [facility] [place], [address] [place] Notes/Report:Lactic Acid2.70.5-2.2 mmol/LHH Critical Result : Called to and read back by: LISSET BRYAN at: 08/01/2024 16:43:10 by:[id number] Lipase Reviewed date:08/01/2024 10:21:51 PM Interpretation: Performing Lab: Notes/Report:Gibjwy30.011.0-82.0 U/LNComplete Blood Count Auto Diff Reviewed date:08/01/2024 10:22:35 PM Interpretation: Performing Lab:, [facility] [place], [facility] [place] Notes/Report:White Blood Count4.73.8-11.6 10*3/uLNUncorrected WBC4.73.8-11.6 10*3/uLNRed Blood Count4.393.60-5.00 10*6/tYARpshrvuwyf43.711.8-15.4 g/dLN Axrfupvhoq90.934.0-46.4 %NMean Corpuscular Bdonvq46.180-100 fLNMean Corpuscular Dirduuuqbe67.224.7-34.3 pgNMean Corpuscular HGB Conc33.532.0-35.0 g/dLNRed Cell Distribution Width14.811.9-15.3 %NPlatelet Rjlud172805-116 10*3/uLHMean Platelet Volume8.66.3-10.7 fLNNeutrophils % (Auto)58.5. %Lymphocytes % (Auto)30.8. % Monocytes % (Auto)8.2. %Eosinophils % (Auto)1.3. %Basophils % (Auto)1.2. %NRBC% 0.20-0.5 /100{WBC}NNeutrophils # (Auto)2.71.8-7.7 10*3/uLNLymphocytes # (Auto) 1.41.00-4.8 10*3/uLNMonocytes # (Auto)0.40.0-0.8 10*3/uLNEosinophils # (Auto)0.1 0.0-0.45 10*3/uLNBasophils # (Auto)0.10.0-0.2 10*3/uLNMonocyte Distribution Width15.970.00-20.00 %NDipstick and Microscopic Reviewed date:08/01/2024 10:22:15 PM Interpretation: Performing Lab:, [facility] [place], [address] [place] Notes/Report: Name Collection Type:: Clean-Voided MidstreamColor,UrineYellowYellow Appearance,UrineClearClearSpecificy [place],Urine1.0251.001-1.030NpH,Urine6.0 5.0-9.0NLeukocyte Esterase,Urine2+NegativeHNitrite,UrineNegativeNegative Protein,UrineNegativeNegativeGlucose,Urine (UA)NormalNormalKetones,UrineNegative NegativeUrobilinogen,UrineNormalNormalBilirubin,UrineNegativeNegativeOccult Blood,UrineNegativeNegativeRBC,Urine3-40-4 [HPF]WBC,Urine3-40-4 [HPF]Squamous Epithelial Cell,Urine1-20-2 [HPF]Bacteria,UrineNone SeenNone SeenHyaline Casts,UrineNone0-8Mucus,UrineRareUrine Culture Reviewed date:08/27/2024 06:55:55 PM Interpretation: Performing Lab:, [facility] [place], [address] Notes/Report:Dipstick and Microscopic Reviewed date:08/23/2024 08:05:09 PM Interpretation: Performing Lab:, [facility] [place], [address] Notes/Report: Name Collection Type:: VoidedColor,UrineYellowYellowAppearance,UrineClearClear Specificy [place],Urine1.0381.001-1.030HpH,Urine6.05.0-9.0NLeukocyte Esterase,Urine4+NegativeHNitrite,UrineNegativeNegativeProtein,Eocrw89Gkygubip mg/dLHGlucose,Urine (UA)NormalNormalKetones,Urine1+NegativeHUrobilinogen,Urine4 Normal mg/dLHBilirubin,UrineNegativeNegativeOccult Blood,UrineNegativeNegative RBC,Urine5-90-4 [HPF]HWBC,Urine5-90-4 [HPF]HSquamous Epithelial Cell,Urine3-40-2 [HPF]HBacteria,UrineRareNone SeenHyaline Casts,Urine0-80-8 [LPF]Mucus,Urine1+AA Basic Metabolic Panel Reviewed date:12/05/2024 12:54:52 PM Interpretation: Performing Lab: Notes/Report:Kwzuldr6187-820 mg/dLN Random Glucose Reference Range is dependent on time and content of last meal. Glucose of more than 200 mg/dL in a nonstressed, ambulatory subject supports the diagnosis of Diabetes Mellitus. ADA recommended reference range Blood Urea Bwhsrtlm872-78 mg/kLPIyjnff804791-961 mmol/LLPotassium3.93.5-5.1 mmol/NMFvcxuzrk56633-887 mmol/LNCarbon Tlhndys58.621.0-31.0 mmol/LNCalcium9.4 8.6-10.3 mg/dLNCreatinine0.610.60-1.20 mg/dLNEstimated GFR>60.0Anion Gap10.36.0- 15.0 meq/LNCreatinine Clr Calc Pwzsmrgv41.01Hepatic Panel Reviewed date:12/05/2024 12:54:34 PM Interpretation: Performing Lab:, [facility] [place], [address] Notes/Report:Total Protein6.66.4-8.9 g/dLNAlbumin Level4.13.5-5.7 g/dLNGlobulin 2.5Albumin/Globulin Ratio1.6Bilirubin,Total0.50.3-1.0 mg/dLNBilirubin,Direct0.10 0.03-0.18 mg/dLNBilirubin,Indirect0.4Aspartate Amino Igwvbudouvd5509-12 U/LN Alanine Fwreyyotiluikwek786-72 U/LNAlkaline Kqlthmsmjbp8273-377 U/LNLipase Reviewed date:12/05/2024 12:55:05 PM Interpretation: Performing Lab: Notes/Report:Xurwan18.011.0-82.0 U/LNCOVID-19 PCR Reviewed date:12/05/2024 12:54:11 PM Interpretation: Performing Lab:, [facility], [place], [address], [facility] Notes/Report: This is a duplicate RP2.1 COVID (PCR) result to be used for statistical tracking purpose only.[employer] Not DetectedNot DetectedNot Detecte Respiratory (Upper) Panel, PCR Reviewed date:12/05/2024 12:54:25 PM Interpretation: Performing Lab:, [facility], [place], [address] , [facility] Notes/Report:AdenovirusNot detectedBordetella parapertussisNot detectedChlamydia pneumoniaeNot detectedCoronavirus 229ENot detectedCoronavirus UKN6Xps detected Coronavirus KJ17Zon detectedCoronavirus IW56Rch detectedInfluenza ANot detected Influenza BNot detectedHuman MetapneumovirusNot detectedMycoplasma pneumoniaeNot detectedParainfluenza Virus 1Not detectedParainfluenza Virus 2Not detected Parainfluenza Virus 3Not detectedParainfluenza Virus 4Not detectedBordetella pertussis-ptxPNot detectedHuman Rhino/EnterovirusDetectedAResp. Syncytial Virus Not detectedCOVID-19 Detected/Not DetectedNot detectedBlank Space FLUA TEST INCLUDES Influenza A tests for the following clinicallyFLUA TEST INCLUDESsignificant subtypes:FLUA TEST INCLUDES- Influenza AFLUA TEST INCLUDES- Influenza A H1FLUA TEST INCLUDES- Influenza A H1 2009FLUA TEST INCLUDES- Influenza A G8Ujfev Space Complete Blood Count and Scan Reviewed date:12/05/2024 12:53:59 PM Interpretation: Performing Lab:, [facility], [place], [address] [place], [place] Notes/Report: For adults in ED, MDW > 20.0 may be associated with a higher risk of sepsis during the first 12 hrs of hospital admissionRBC MorphologyNormal NormalPlatelet EstimateNormalNormalPlatelet MorphologyNormalNormalWhite Blood Count7.63.8-11.6 10*3/uLNUncorrected WBC7.63.8-11.6 10*3/uLNRed Blood Count4.20 3.60-5.00 10*6/eMIMjqzvjxqrz88.211.8-15.4 g/cXXWrtiakleej29.634.0-46.4 %NMean Corpuscular Hukaxd61.980-100 fLNMean Corpuscular Aokzwnxnuw75.524.7-34.3 pgNMean Corpuscular HGB Conc34.232.0-35.0 g/dLNRed Cell Distribution Width14.911.9-15.3 %NPlatelet Tmjba858080-362 10*3/uLNMean Platelet Volume8.66.3-10.7 fLNMonocyte Distribution Width21.480.00-20.00 %HNeutrophils % (Auto)62.5. %Lymphocytes % (Auto)23.0. %Monocytes % (Auto)11.3. %Eosinophils % (Auto)1.5. %Basophils % (Auto)1.7. %NRBC%0.10-0.5 /100{WBC}NNeutrophils # (Auto)4.71.8-7.7 10*3/uLN Lymphocytes # (Auto)1.71.00-4.8 10*3/uLNMonocytes # (Auto)0.90.0-0.8 10*3/uLH Eosinophils # (Auto)0.10.0-0.45 10*3/uLNBasophils # (Auto)0.10.0-0.2 10*3/uLN Basic Metabolic Panel Reviewed date:12/24/2024 09:44:38 PM Interpretation: Performing Lab: Notes/Report:Wfsayue6057-067 mg/dLN Random Glucose Reference Range is dependent on time and content of last meal. Glucose of more than 200 mg/dL in a nonstressed, ambulatory subject supports the diagnosis of Diabetes Mellitus. ADA recommended reference range Blood Urea Heryrolo63-00 mg/zFTUzextu614107-972 mmol/LNPotassium3.83.5-5.1 mmol/BZAxjtdguc33023-461 mmol/LHCarbon Uqexjac05.221.0-31.0 mmol/LNCalcium9.6 8.6-10.3 mg/dLNCreatinine0.630.60-1.20 mg/dLNEstimated GFR>60.0Anion Gap10.66.0- 15.0 meq/LNCreatinine Clr Calc Nmamwhrp70.01Hepatic Panel Reviewed date:12/24/2024 09:44:28 PM Interpretation: Performing Lab:, [facility], [place], [address], [place] Notes/Report:Total Protein6.76.4-8.9 g/dLNAlbumin Level4.33.5-5.7 g/dLNGlobulin 2.4Albumin/Globulin Ratio1.8Bilirubin,Total0.50.3-1.0 mg/dLNBilirubin,Direct0.10 0.03-0.18 mg/dLNBilirubin,Indirect0.4Aspartate Amino Wkfmbjdrosv3637-80 U/LN Alanine Uwonfyjihdcmzwkl712-18 U/LNAlkaline Jwoatisywvc6546-342 U/LNLipase Reviewed date:12/24/2024 09:44:53 PM Interpretation: Performing Lab: Notes/Report:Mwfrxa82.011.0-82.0 U/LNComplete Blood Count Auto Diff Reviewed date:12/24/2024 09:44:46 PM Interpretation: Performing Lab:, [facility], [place], [address] [place] Notes/Report:White Blood Count4.53.8-11.6 10*3/uLNUncorrected WBC4.53.8-11.6 10*3/uLNRed Blood Count4.573.60-5.00 10*6/jBBZduyqbgvpp33.311.8-15.4 g/dLN Gjlydpvhyr10.934.0-46.4 %NMean Corpuscular Bxrdvt41.680-100 fLNMean Corpuscular Rdsfklwoeo94.224.7-34.3 pgNMean Corpuscular HGB Conc34.132.0-35.0 g/dLNRed Cell Distribution Width14.311.9-15.3 %NPlatelet Bjtdp544389-771 10*3/uLHMean Platelet Volume8.26.3-10.7 fLNUrine Culture Reviewed date:12/24/2024 09:44:13 PM Interpretation: Performing Lab:, [facility], [place], [address] [place] Notes/Report:Drug Screen,Urine Reviewed date:12/24/2024 09:45:23 PM Interpretation: Performing Lab:, [facility] [place], [address] [place] Notes/Report:Amphetamine Screen,UrineNegativeNegativeBarbiturate Screen,Urine NegativeNegativeBenzodiazepines Screen,UrineNegativeNegativeCocaine Screen,Urine NegativeNegativeOpiate Screen,UrinePositiveNegativeHPhencyclidine Screen,Urine NegativeNegativeCannabinoid Screen,UrinePositiveNegativeH These are unconfirmed results and should not be used for legal purposes. Drug Cut-Off Concentration: AMPH 1000 ng/mL SERGIO 200 ng/mL WAYNE 200 ng/mL COCM 300 ng/mL OP 300 ng/mL PCP 25 ng/mL THC 20 ng/mL Complete Blood Count and Scan Reviewed date:12/24/2024 09:45:09 PM Interpretation: Performing Lab:, [facility] [place], [address] [place] Notes/Report:Platelet EstimateIncreasedNormalPlatelet MorphologyNormalNormal White Blood Count4.53.8-11.6 10*3/uLNUncorrected WBC4.53.8-11.6 10*3/uLNRed Blood Count4.573.60-5.00 10*6/nKPDkvwdqanfc70.311.8-15.4 g/kAWOgnyqvxibn00.9 34.0-46.4 %NMean Corpuscular Qipftz16.680-100 fLNMean Corpuscular Lstsjdvlfp24.2 24.7-34.3 pgNMean Corpuscular HGB Conc34.132.0-35.0 g/dLNRed Cell Distribution Width14.311.9-15.3 %NPlatelet Kxjgv123019-791 10*3/uLHMean Platelet Volume8.2 6.3-10.7 fLNMonocyte Distribution Width18.730.00-20.00 %NNeutrophils % (Auto) 35.9. %Lymphocytes % (Auto)54.0. %Monocytes % (Auto)7.1. %Eosinophils % (Auto) 1.9. %Basophils % (Auto)1.1. %NRBC%0.10-0.5 /100{WBC}NNeutrophils # (Auto)1.6 1.8-7.7 10*3/uLLLymphocytes # (Auto)2.41.00-4.8 10*3/uLNMonocytes # (Auto)0.3 0.0-0.8 10*3/uLNEosinophils # (Auto)0.10.0-0.45 10*3/uLNBasophils # (Auto)0.1 0.0-0.2 10*3/uLNAnisocytosisSlightMicrocytosisSlightDipstick and Microscopic Reviewed date:12/24/2024 09:45:00 PM Interpretation: Performing Lab:, [facility], [place], [place] Notes/Report: Name Collection Type:: Clean-Voided MidstreamColor,UrineYellowYellow Appearance,UrineClearClearSpecificy [place],Urine1.0251.001-1.030NpH,Urine7.0 5.0-9.0NLeukocyte Esterase,Urine2+NegativeHNitrite,UrineNegativeNegative Protein,UrineNegativeNegativeGlucose,Urine (UA)NormalNormalKetones,UrineNegative NegativeUrobilinogen,UrineNormalNormalBilirubin,UrineNegativeNegativeOccult Blood,UrineNegativeNegativeRBC,Urine1-20-4 [HPF]WBC,Urine5-90-4 [HPF]HSquamous Epithelial Cell,Urine1-20-2 [HPF]Bacteria,UrineRareNone SeenHyaline Casts,Urine 0-80-8 [LPF]Mucus,UrineRareComprehensive Metabolic Panel Reviewed date:01/03/2025 11:52:41 AM Interpretation: Performing Lab:, [facility] [place], [address], [place] Notes/Report: Reason for Exam Mixed hyperlipidemia Reason for Exam Essential mvaenxxekfdwHtnktkf2863-939 mg/dLN Random Glucose Reference Range is dependent on time and content of last meal. Glucose of more than 200 mg/dL in a nonstressed, ambulatory subject supports the diagnosis of Diabetes Mellitus. ADA recommended reference range Blood Urea Tpirpuif214-02 mg/dLNCreatinine0.680.60-1.20 mg/wDHIdfyas585618-757 mmol/LNPotassium4.43.5-5.1 mmol/LN Hemolysis is present at a level that could interfere with the result. Contact lab if redraw is required Syiokskf29996-728 mmol/LHCarbon Zhfwkvp50.321.0-31.0 mmol/LNCalcium9.38.6-10.3 mg/dLNTotal Protein6.26.4-8.9 g/dLLAlbumin Level4.23.5-5.7 g/dLNGlobulin2.0 Albumin/Globulin Ratio2.1Bilirubin,Total0.50.3-1.0 mg/dLNAspartate Amino Rsqqyayefit1007-78 U/LNAlanine Npokmskwukwcismr229-90 U/LNAlkaline Ngxnudukosy63 34-104 U/LNEstimated GFR>60.0Anion Gap11.16.0-15.0 meq/LNLipid Panel Reviewed date:01/03/2025 11:52:51 AM Interpretation: Performing Lab: Notes/Report: Reason for Exam Essential hypertension Reason for Exam Mixed foteqqorxdqowfKjhstzsbimn204167-225 mg/dLN Chol less than 200 mg/dl low risk Chol 201-239 mg/dl borderline risk Chol 240 mg/dl and greater high risk HDL Xlzemfxlavr1811-91 mg/dLN HDL CHOL ATP-III CLASSIFICATION Cardiovascular Risk HDL > or equal to 60 mg/dL LOW HDL < 40 mg/dL HIGH Triglyceride w/Mqboff201-866 mg/dLN TRIG ATP III CLASSIFICATION TRIG less than 150 mg/dL Normal TRIG 150-199 mg/dL Borderline high TRIG 200-500 mg/dL High TRIG greater than 500 mg/dL Very high Standard traceable to the Center for Disease Conrtrol and Prevention (CDC) test method. LDL Cholesterol,Insnkoeqfm944-370 mg/dLN LDL ATP III CLASSIFICATION LDL less than 100 mg/dL Optimal LDL 100-129 mg/dL Near or above optimal LDL 130-159 mg/dL Borderline high LDL 160-189 mg/dL High LDL greater than 189 mg/dL Very high VLDL KFASHDJBUIW48Jafm/HDL Ratio2.8<5.0Thyroid Stim Hormone w/Rflx Reviewed date:01/03/2025 11:52:29 AM Interpretation: Performing Lab: Notes/Report: Reason for Exam Essential hypertension Reason for Exam Mixed hyperlipidemiaThyroid Stim Hormone w/Rflx0.620.45-5.33 u[iU]/mLNComplete Blood Count and Scan Reviewed date:01/03/2025 11:52:22 AM Interpretation: Performing Lab:, [facility] [place], [address], [place] Notes/Report: Reason for Exam Essential hypertensionRBC MorphologyNormalNormalPlatelet EstimateNormalNormalWhite Blood Count4.43.8-11.6 10*3/uLNUncorrected WBC4.43.8- 11.6 10*3/uLNRed Blood Count4.463.60-5.00 10*6/oXYVytcziylsc07.911.8-15.4 g/dLN Qieujhhrjy70.834.0-46.4 %NMean Corpuscular Kssqcw87.680-100 fLNMean Corpuscular Hmuxezjyxe56.124.7-34.3 pgNMean Corpuscular HGB Conc33.232.0-35.0 g/dLNRed Cell Distribution Width14.011.9-15.3 %NPlatelet Beafo345103-790 10*3/uLNMean Platelet Volume9.06.3-10.7 fLNNeutrophils % (Auto)40.4. %Lymphocytes % (Auto)47.1. % Monocytes % (Auto)8.8. %Eosinophils % (Auto)2.5. %Basophils % (Auto)1.2. %NRBC% 0.20-0.5 /100{WBC}NNeutrophils # (Auto)1.81.8-7.7 10*3/uLNLymphocytes # (Auto) 2.11.00-4.8 10*3/uLNMonocytes # (Auto)0.40.0-0.8 10*3/uLNEosinophils # (Auto)0.1 0.0-0.45 10*3/uLNBasophils # (Auto)0.10.0-0.2 10*3/uLNLarge PlateletsSlightBasic Metabolic Panel Reviewed date:01/16/2025 08:19:05 AM Interpretation: Performing Lab: Notes/Report:Qhvwhwt3963-484 mg/dLN Random Glucose Reference Range is dependent on time and content of last meal. Glucose of more than 200 mg/dL in a nonstressed, ambulatory subject supports the diagnosis of Diabetes Mellitus. ADA recommended reference range Blood Urea Zwppvvux619-43 mg/cDKOelwgf019390-116 mmol/LNPotassium4.13.5-5.1 mmol/NESmejwagg01182-190 mmol/LNCarbon Nnzkonu09.921.0-31.0 mmol/LNCalcium9.7 8.6-10.3 mg/dLNCreatinine0.700.60-1.20 mg/dLNEstimated GFR>60.0Anion Gap9.2 6.0-15.0NCreatinine Clr Calc Mgjugdwy32.01Hepatic Panel Reviewed date:01/16/2025 08:19:16 AM Interpretation: Performing Lab:, [facility] [place], [address] [place] Notes/Report:Total Protein7.06.4-8.9 g/dLNAlbumin Level4.63.5-5.7 g/dLNGlobulin 2.4Albumin/Globulin Ratio1.9Bilirubin,Total0.40.3-1.0 mg/dLNBilirubin,Direct0.10 0.03-0.18 mg/dLNBilirubin,Indirect0.3Aspartate Amino Tenqfrpccqf7073-39 U/LN Alanine Babujxkxkzxmexsa074-03 U/LNAlkaline Klacblpgibv4963-794 U/LNLipase Reviewed date:01/16/2025 08:18:50 AM Interpretation: Performing Lab: Notes/Report:Vukvnb29.011.0-82.0 U/LNProthrombin Time INR Reviewed date:01/16/2025 08:18:33 AM Interpretation: Performing Lab:, [facility] [place], [address] [place] Notes/Report:Prothrombin Time12.79.0-12.9 sN A hematocrit value greater than 55% may lead to inaccurate results in coagulation testing. Patients having hematocrit values >55% require a special collection tube for coagulation studies. Please contact the laboratory at [phone] for redraw instructions. INR1.1 INR Therapeutic Range A) Pre- and Peroperative OAT started two weeks before surgery. NOT HIP SURGERY: 1.5 - 2.5 HIP SURGERY: 2 - 3 B) Primary and secondary prevention of venous THROMBOSIS: 2 - 3 C) Active venous thrombosis, pulmonary embolism and prevention of recurrent venous thrombosis: 2 - 3 D) Prevention of arterial thromboembolism including patients with mechanical heart valves: 3 - 4.5 Partial Thromboplastin Time Reviewed date:01/16/2025 08:18:26 AM Interpretation: Performing Lab: Notes/Report:Partial Thromboplastin Time31.425.1-36.5 sN A hematocrit value greater than 55% may lead to inaccurate results in coagulation testing. Patients having hematocrit values >55% require a special collection tube for coagulation studies. Please contact the laboratory at [phone] for redraw instructions. Complete Blood Count Auto Diff Reviewed date:01/16/2025 08:17:53 AM Interpretation: Performing Lab:, [facility] [place], [address] [place] Notes/Report:White Blood Count4.53.8-11.6 [CFU]/mLNUncorrected WBC4.53.8-11.6 10*3/uLNRed Blood Count4.823.60-5.00 10*6/eQNHqxikudvvi99.911.8-15.4 g/dLN Cnyjlbtrzo55.934.0-46.4 %NMean Corpuscular Nebeln38.180-100 fLNMean Corpuscular Ofwlgkhmej84.824.7-34.3 pgNMean Corpuscular HGB Conc33.132.0-35.0 g/dLNRed Cell Distribution Width14.611.9-15.3 %NPlatelet Qkqhd383247-500 10*3/uLNMean Platelet Volume8.36.3-10.7 fLNChlamydia/GC/Trich LIDIA Reviewed date:02/18/2025 08:52:30 PM Interpretation: Performing Lab:, [facility] [place], [address], [place] Notes/Report: Reason for Exam High risk heterosexual behaviorChlamydia Trachomotis, LIDIA NegativeNegativeNeisseria Gonorrhoeae, NAANegativeNegativeTrichomonas LIDIA NegativeNegative Performed at: = - [facility] [id number] Seed Trucker: Mery Mcdonald MD, Phone: [phone] Drug Screen,Urine Reviewed date:02/22/2025 02:04:45 PM Interpretation: Performing Lab:, [facility] [place], [address] Notes/Report:Amphetamine Screen,UrineNegativeNegativeBarbiturate Screen,Urine NegativeNegativeBenzodiazepines Screen,UrinePositiveNegativeCocaine Screen,Urine NegativeNegativeOpiate Screen,UrinePositiveNegativePhencyclidine Screen,Urine NegativeNegativeCannabinoid Screen,UrinePositiveNegative These are unconfirmed results and should not be used for legal purposes. Drug Cut-Off Concentration: AMPH 1000 ng/mL SERGIO 200 ng/mL WAYNE 200 ng/mL COCM 300 ng/mL OP 300 ng/mL PCP 25 ng/mL THC 20 ng/mL Urine Culture Reviewed date:06/03/2025 05:48:59 PM Interpretation: Performing Lab:, [facility] [place], [address] [place] Notes/Report:Urine Culture Hgcmzen09,000 colonies/ml Mixed Bacterial Skin Contaminants 2 DaysDipstick and Microscopic Reviewed date:05/31/2025 11:55:23 AM Interpretation: Performing Lab:, [facility] [place], [address] , [place] Notes/Report: Name Collection Type:: VoidedColor,UrineYellowYellowAppearance,UrineClearClear Specificy [place],Urine>1.0501.001-1.030HpH,Urine6.55.0-9.0NLeukocyte Esterase,Urine2+NegativeNitrite,UrineNegativeNegativeProtein,UrineNegative Negative mg/dLGlucose,Urine (UA)NormalNormal mg/dLKetones,UrineNegativeNegative Urobilinogen,Kyqxp8Zqwkwj mg/dLBilirubin,UrineNegativeNegativeOccult Blood,Urine NegativeNegativeRBC,Urine5-90-4 [HPF]WBC,Dtzzn93-396-8 [HPF]Squamous Epithelial Cell,Urine1-20-2 [HPF]Bacteria,UrineNone SeenNone Seen [HPF]Hyaline Casts,Urine None0-8 [LPF]Mucus,Urine1+AAUBASE - Urinary Tract Infection (HTRx) Reviewed date:06/07/2024 09:05:53 PM Interpretation: Performing Lab: Notes/Report: Real-Time polymerase chain reaction (TaqMan qPCR) was utilized for detection for all tested organisms and resistance genes. COVID-19 testing separately performed using Augment[employer]Path COVID-19 Combo kit. Initiation of antimicrobial therapy prior to testing may affect results and can lead to the detection of non-living microorganisms. Detection of microbes must be correlated with current/recent antibiotic usage and patient signs and symptoms. Microbial sensitivity testing is not performed at this lab. Fund Accountant to CFU/mL equivalent thresholds were established basedon studies using known CFU/mL urine specimens performed at [facility] in [place], [place]. Testing performed by [facility] ([address], [place] [address]; CLIA# [id number]; Seed Trucker Joi Flores, PhD, HCLD(ABB)). This test was developed, andits performance characteristics determined by [facility]. It has not been cleared or approved bythe FDA. However, such approval/clearance is not required, as the laboratory is regulated and qualified under CLIA to perform high-complexity testing. This test is used for clinical purposes and should not be regarded as investigational or for research. *Approximate copies of target nucleic acid per &micro;L (Low: <2,500 copies/&micro;L, Moderate: 2,500-50,000 copies/&micro;L, High: >50,000 copies/&micro;L) National Infectious Disease Consensus Data Potentially effective oral antibiotics, based on presence of detected microbes, antimicrobial resistance genes, and jace ional antimicrobial sensitivity data (see Summary Antibiogram).Acinetobacter baumannii0.58958.961 - 24.689 ppmAcinetobacter baumanniiNot Dttfzdev98.961 - 24.689 ppmCitrobacter freundii0.37775.000 - 31.881 ppmCitrobacter freundiiNot Aycmnzcx27.000 - 31.881 ppmEnterobacter aerogenes, cloacae0.60859.000 - 31.535 ppmEnterobacter aerogenes, cloacaeNot Feiotfxc30.000 - 31.535 ppmEnterococcus faecalis, faecium0.57637.000 - 31.575 ppmEnterococcus faecalis, faeciumNot Wedwvkjd21.000 - 31.575 ppmEscherichia coli0.33963.000 - 28.500 ppmEscherichia coliNot Qkqsgmmu91.000 - 28.500 ppmKlebsiella pneumoniae, oxytoca0.07979.000 - 30.500 ppmKlebsiella pneumoniae, oxytocaNot Bgzdqaru39.000 - 30.500 ppm Morganella morganii0.42229.961 - 24.689 ppmMorganella morganiiNot Swojudte32.961 - 24.689 ppmProteus mirabilis, vulgaris0.65571.000 - 28.500 ppmProteus mirabilis, vulgarisNot Ydkfmuwi65.000 - 28.500 ppmPseudomonas aeruginosa0.000 23.000 - 28.500 ppmPseudomonas aeruginosaNot Togvxeah47.000 - 28.500 ppm Staphylococcus aureus0.90798.000 - 30.902 ppmStaphylococcus aureusNot Detected 26.000 - 30.902 ppmStreptococcus agalactiae (Group B Strep)0.90216.000 - 32.222 ppmStreptococcus agalactiae (Group B Strep)Not Zlimbiwh11.000 - 32.222 ppm Margaret albicans, parapsilosis, tropicalis0.12196.961 - 30.770 ppmCandida albicans, parapsilosis, tropicalisNot Qfwfxosc87.961 - 30.770 ppmCandida glabrata (Nakaseomyces glabratus)0.87695.000 - 32.138 ppmCandida glabrata (Nakaseomyces glabratus)Not Hgkjwahc83.000 - 32.138 ppmCandida krusei (Pichia kudriavzevii)0.78959.000 - 32.271 ppmCandida krusei (Pichia kudriavzevii)Not Oqyfxblk29.000 - 32.271 ppmSerratia marcescens0.70059.000 - 31.204 ppmSerratia marcescensNot Nsqwvlxu85.000 - 31.204 ppmStreptococcus pyogenes (Group A strep) 0.75147.961 - 24.689 ppmStreptococcus pyogenes (Group A strep)Not Jbsoejoe96.961 - 24.689 ppmStaphylococcus saprophyticus0.95544.961 - 24.689 ppmStaphylococcus saprophyticusNot Bbbqnjlw51.961 - 24.689 ppmStaphylococcus epidermidis, haemolyticus, lugdunensis0.72811.961 - 24.689 ppmStaphylococcus epidermidis, haemolyticus, lugdunensisNot Bddhchgh00.961 - 24.689 ppm Reason For Referral No Information Medications Medication SIG (Take, Route, Frequency, Duration) Notes Start Date End Date Status Cetirizine HCl 10 MG Tablet 1 tablet Orally at b edtime; Duration: 30 days 02/10/20238194YhkrhzAhqtqbmr-Mwseibheq-YH 3.5-55676-3 Suspension4 drops into affected ear Otic Three times a day; Duration: 5 days07/13/2022ctive Pantoprazole Sodium 20 MG Tablet Delayed ReleaseTAKE 1 TABLET BY MOUTH DAILY Orally Once a day; Duration: 90 daysActivetraZODone HCl 150 MG Tablet1 tablet Orally Once a dayActiveAustedo 12 MG Tablet1 tablet Orally twice a day (bid) ActiveAtorvastatin Calcium 20 MG TabletTAKE 1 TABLET BY MOUTH ONCE NIGHTLY; Duration: 90ActiveamLODIPine Besylate 5 MG TabletTAKE 1 TABLET BY MOUTH DAILY; Duration: 30ActiveDicyclomine HCl 20 MG TabletTAKE 1 TABLET BY MOUTH 3 TIMES A DAY; Duration: 30ActiveDepakote 500 MG Tablet Delayed Release1 tablet Orally Twice a day; Duration: 30 day(s)ActivehydrOXYzine HCl 10 MG Tablet 1 tablet as needed Orally twice a day; Duration: 30 days As needed 4ActiveLORazepam 0.5 MG Tablet 1 tablet Orally twice a day; Duration: 30 days As needed 5ActiveTrintellix 20 MG Tablet1 tablet Orally Once a dayActive Fluticasone Propionate 50 MCG/ACT Suspension1 spray in each nostril Nasally Once a day; Duration: 30 daysActiveTriamcinolone Acetonide 0.1 % Cream 1 application Externally Two times a Week; Duration: 30 days As needed 5Active Immunizations Vaccine Route Administration Date Status Comme nts Influenza 3+ PRIVATE IM Intramuscular 05/10/2019 Administe red Influenza 3+ PRIVATEIM Atzsbmxkakkoo55/16/2020AdministeredInfluenza 3+ PRIVATEIM Qfvzessmmlqex24/28/2021dministeredInfluenza 3+ PRIVATEIM Intramuscular 05/18/2022dministeredInfluenza 3+ PRIVATEIM Peiedklgukivh77/29/2023dministered MODERNAIM Tnosxojkmoiud80/11/2021PendingMODERNAIM Ezpbzvxaikqlf54/08/2021 AdministeredMODERNAIM Jrkpehpnvoacs40/21/2022dministeredMODERNA BIVALENTIM Fpcrmkuucrywy48/05/2023dministeredPneumococcal 20 - PREVNAR 20IM Intramuscular 07/06/2022dministered Social History Tobacco Use: Social History Observation Description Date Details (start date - stop date) Current Smoker NA - NA Social History GeneralSocial InfoQuestionAnswerNotesTransition of Care:ER/UC/hospital since last office visit?NoSubstance abuse/mental health issues of patient/family Patient -DeniesAbility to understand healthcare/treatmentPatient:FairTobacco Screen:Are you a:current smoker? How many cigarettes a day do you smoke?5 or lessSocial/Support Concerns:Patient:NoAlcohol Screening:Did you have a drink containing alcohol in the past year?GfEcwjvs6HmnqhgyrtmqilfXvcntsupPeazwlhtk affecting healthPoor/Risky Behaviors:Denies-Communication Barrier:Language Barrier?:NoTobacco Use:Social InfoQuestionAnswerNotesTobacco Control (Standard) Tobacco use:Current smoker? How often do you smoke cigarettes?Some days, but not every day Problems Problem Type SNOMED Code ICD Code Onset Dates Problem Status W/U Status Risk Notes Problem Mixed hyperlipidemia (495597652) Mixed hy perlipidemia (E78.2) ActiveconfirmedProblemTobacco user (593721135)Nicotine dependence, unspecified, uncomplicated (F17.200)ActiveconfirmedProblemEssential tremor (503476615) Essential tremor (G25.0)ActiveconfirmedProblemChronic pain (48747152)Other chronic pain (G89.29)ActiveconfirmedProblemChronic obstructive pulmonary disease with acute lower respiratory infection (233568766)Chronic obstructive pulmonary disease with acute lower respiratory infection (J44.0)ActiveconfirmedProblem Constipation (22373188)Constipation, unspecified (K59.00)ActiveconfirmedProblem Slow transit constipation (44466732)Slow transit constipation (K59.01)Active confirmedProblemLow back pain (576387643)Low back pain (M54.5)Activeconfirmed ProblemUrge incontinence of urine (13906594)Urge incontinence (N39.41)Active confirmedProblemAtaxic gait (62759333)Ataxic gait (R26.0)ActiveconfirmedProblem Seasonal allergy (214482995)Seasonal allergies (J30.2)ActiveconfirmedProblem Vitamin D deficiency (98405644)Vitamin D deficiency (E55.9)Activeconfirmed ProblemEssential hypertension (48200578)Essential hypertension (I10)Active confirmedProblemBipolar 1 disorder (411537803)Bipolar 1 disorder (F31.9)Active confirmedProblemCOPD - Chronic obstructive pulmonary disease (77692698)Chronic obstructive pulmonary disease, unspecified COPD type (J44.9)Activeconfirmed ProblemChronic migraine without aura, non-intractable (780863290973588)Chronic migraine without aura without status migrainosus, not intractable (G43.709) ActiveconfirmedProblemInsomnia disorder related to another mental disorder (89610557)Psychophysiological insomnia (F51.04)ActiveconfirmedProblem Diverticular disease (558725017)Diverticular disease (K57.90)Activeconfirmed ProblemOsteoarthritis of knee (384141509)Primary osteoarthritis of right knee (M17.11)ActiveconfirmedProblemAltered mental status (503564149)Altered mental status, unspecified altered mental status type (R41.82)ActiveconfirmedProblem Osteoarthritis of knee (354185029)Primary osteoarthritis of left knee (M17.12) ActiveconfirmedProblemCervical disc disease (867770937)Cervical disc disease (M50.90)ActiveconfirmedProblemHistory of appendectomy (261901545)S/P appendectomy (Z90.49)Activeconfirmed Vital Signs Heart Rate 60 /min 04/30/2025 Fwqjhjnnasf12.4 degrees Ekbhobxydz44/30/2025Respiratory Rate18 /min04/30/2025 Yochkzdx571 %04/30/2025lood pressure xwyisknoq06 mm Hg04/30/20256144Wwmiiq1xc2nu in 04/30/2025lood pressure mqnzlosv220 mm Hg04/30/20253293Qmptnl936.2 lbs04/30/2025MI 22.35 kg/m204/30/2025 Encounters Encounter Location Date Provider Diagnosis [facility] [address] [place] [address] 06/07/2024 [facility] [place] [address]/14/2024 [facility] [place] [address] 06/14/2024Laura SpasicNicotine dependence, unspecified, uncomplicated F17.200 [facility] [place] [address]/07/2024 [facility] [place] [address] 07/24/2024Laura SpasicEssential tremor G25.0[facility] [address] [place] [address]/[facility] [address] [place] [address]/[facility] [address] [place] [address]/Laura SpasicUpper respiratory disease J39.9[facility] [address] [place] [address]/09/2024[facility] [address] [place] [address]/Laura SpasicPrimary osteoarthritis of left knee M17.95[address] [place] [address]/Laura Spasic Essential tremor G25.0 ; Essential hypertension I10 and Primary osteoarthritis of right knee M17.11[facility] [address] [place] [address]/Laura SpasicEssential tremor G25.0[facility] [address] [place] [address]/[facility] [address] [place] [address]/Laura SpasicHigh risk heterosexual behavior Z72.51[facility] [facility] [place] [address]/Laura SpasicEssential tremor G25.0[facility] [address] [place] [address]/08/2024[facility] Pgodyp[address] [facility] [place] [address]/Laura SpasicPrimary osteoarthritis of right knee M17.11 ; Nicotine dependence, unspecified, uncomplicated F17.200 and Chronic obstructive pulmonary disease with acute lower respiratory infection J44.0[facility] Water [address] [address]/05/2025Laura SpasicPossible exposure to STI Z20.2 ; Urinary urgency R39.15 and Primary osteoarthritis of left knee M17.12[facility] [address] [address]/Laura SpasicHigh risk heterosexual behavior Z72.51 and Primary osteoarthritis of left knee M17.[address] [address]/Laura Spasic Essential tremor G25.0 ; Diverticular disease K57.90 ; Primary osteoarthritis of right knee M17.11 ; Generalized abdominal pain R10.84 ; Uncomplicated opioid use F11.90 and Constipation, unspecified K59.[address] [address]/01/2025Laura SpasicDiverticular disease K57.90 ; Chronic constipation K59.09 and Essential tremor G25.[address] [address]/11/2024Laura SpasicEssential tremor G25.0 ; Essential hypertension I10 ; Seasonal allergies J30.2 ; Rash R21 ; Diverticular disease K57.90 and Primary osteoarthritis of left knee M17.[address] [address]/09/2024Laura Spasic Essential tremor G25.0 ; Diverticular disease K57.90 and Primary osteoarthritis of right knee M17.[address] [address] 03Laura SpasicEssential tremor G25.0 ; Mixed hyperlipidemia E78.2 ; Essential hypertension I10 ; Primary osteoarthritis of right knee M17.11 ; Slow transit constipation K59.01 ; Rash R21 and Seasonal allergies J30.2[address] [place] [address]/11/2023Laura SpasicNicotine dependence, unspecified, uncomplicated F17.200 ; Essential hypertension I10 ; Pruritus L29.9 ; Essential tremor G25.0 ; Primary osteoarthritis of right knee M17.11 ; Urinary tract infection without hematuria, site unspecified N39.0 and Seasonal allergies J30.2[address] [address]/11/2023Laura SpasicNicotine dependence, unspecified, uncomplicated F17.200 ; Recurrent UTI N39.0 ; Other chronic pain G89.29 and Primary osteoarthritis of right knee M17.[address] [address]/Laura SpasicNicotine dependence, unspecified, uncomplicated F17.200 ; Diverticular disease K57.90 ; Essential tremor G25.0 ; Depressed mood R45.89 and Weight loss, unintentional R63.4[address] [address]/lexa zzzMurrayOther chronic pain G89.[address] [address] 02/28/2025Laura SpasicPrimary osteoarthritis of right knee M17.11 Assessments Encounter Date Diagnosis (ICD Code) Assessment Notes Treatment Notes Treatment Clinical Notes Section Notes 06/05/2024 Nicotine dependence, unspecified , uncomplicated (ICD-10 - F17.200) smoking cessation discussed. Pt verbalized understanding to complication of tobacco use including cardiac and pulmonary disease, as well as stroke. Pt declines interest in this time.06/05/2024ecurrent UTI (ICD-10 - N39.0)U/A NOT consistent for UTI, will send for culture. Start antibiotic, pt reports exposure to STI andwould like treatment with ROCPHIN. Potential side effects of abx discussed including upset stomach,diarrhea, if symptoms occur, please notify office. Good india-hygiene is discussed. Always wipe front to back, void after intercourse, avoid rectal to vaginal intercourse as this can transfer bacteria, void after intercourse. Increase oral fluids to flush system. Cranberry juice and orange juice aremore acidic and good for the urinary tract. Avoid irritants such as alcohol, caffeine. If you develop fever, chills, blood in urine, back pain, go to the ER/urgent care.06/14/2024Nicotine dependence, unspecified, uncomplicated (ICD-10 - F17.200)07/05/2024Nicotine dependence, unspecified, uncomplicated (ICD-10 - F17.200)smoking cessation discussed. Pt verbalized understanding to complication of tobacco use including cardiac and pulmonary disease, as well as stroke. Pt declines interest in this time.07/05/2024 Essential hypertension (ICD-10 - I10)BP below goal of 140/90, continue medications, will get updated labs. Enc daily exercise, low salt diet. Any chest pain, pressure, sob call 911/ER.07/24/2024Essential tremor (ICD-10 - G25.0) 07/31/2024Nicotine dependence, unspecified, uncomplicated (ICD-10 - F17.200) smoking cessation discussed. Pt verbalized understanding to complication of tobacco use including cardiac and pulmonary disease, as well as stroke. Pt declines interest in this time.07/31/2024rimary osteoarthritis of right knee (ICD-10 - M17.11)Enc pt to exercise at least 30 minutes a day with moderate exercise. NSAIDS can be helpful if you do not have elevated blood pressure. For pain, tylenol 500 mg Q6 hours, do not exceed 3000 mg in a day. Home exercise program. Heat or ice as needed. Topical medications such as biofreeze, asper cream,icy hot can also be helpful. Tumeric is a natural anti-inflammatory which can also alleviate pain. refill pain medication is too soon, per oars report, tordol today.08/14/2024Nicotine dependence, unspecified, uncomplicated (ICD-10 - F17.200)smoking cessation discussed. Pt verbalized understanding to complication of tobacco use including cardiac and pulmonary disease, as well as stroke. Pt declines interest in this time.08/14/2024Diverticular disease (ICD-10 - K57.90)pt needs to increase fiber and water, normal bowel movements, add senna to colace will treat with augmentin to help with abd pain, pt also enc to take bentyl for pain as well.08/23/2024Upper respiratory disease (ICD-10 - J39.9)10/04/2024Mixed hyperlipidemia (ICD-10 - E78.2)lipid panel every 3-6 months with CMP to monitor liver and renal function, adjust medications accord ingly. Discussed a low chol diet. Enc moderate daily exercise. If you develop any muscle cramping, leg cramps/pain, intolerance to medication please RTO. 10/04/2024Essential tremor (ICD-10 - G25.0)continue lorazepam for tremor. 10/18/2024Primary osteoarthritis of left knee (ICD-10 - M17.12)10/18/2024Other chronic pain (ICD-10 - G89.29)11/08/2024Urinary urgency (ICD-10 - R39.15)U/A consistent for UTI, will send for culture. Start antibiotic, pt advised to take as prescribed and until gone. Potential side effects of abx discussed including upset stomach, diarrhea, if symptoms occur, please notify office. Good ind[place]- hygiene is discussed. Always wipe front to back, void afterintercourse, avoid rectal to vaginal intercourse as this can transfer bacteria, void after intercourse. Increase oral fluids to flush system. Cranberry juice and orange juice are more acidic and goodfor the urinary tract. Avoid irritants such as alcohol, caffeine. If you develop fever, chills, blood in urine, back pain, go to the ER/urgent care.11/08/2024Possible exposure to STI (ICD-10 - Z20.2)pt concerned about exposure, having symptos, will treat with 1 G rocephin. 11/12/2024Essential tremor (ICD-10 - G25.0)12/20/2024Essential tremor (ICD-10 - G25.0)01/03/2025Essential tremor (ICD-10 - G25.0)pt requested medication refills today, refills sent per idqvqyu8401/31/2025Essential tremor (ICD-10 - G25.0)pt requested medication refills today, refills sent per slzxrdu2101/31/2025 Diverticular disease (ICD-10 - K57.90)dicussed diet high in water and fiber. pt to get testing as ordered by GI. if pain develops, bloodystool return to ER 02/14/2025High risk heterosexual behavior (ICD-10 - Z72.51)Enc patient to practice safe sex, she was insistent on being treated today with rocephin. Will sendalso for utkfwaa9702/15/2025High risk heterosexual behavior (ICD-10 - Z72.51) 02/28/2025Primary osteoarthritis of right knee (ICD-10 - M17.11)03/07/2025 Diverticular disease (ICD-10 - K57.90)high fiber diet and hydration, avoid irritants. eat small meals. Enc metamucil and keep bowels regular, continue elfpwqrum48/07/2025hronic constipation (ICD-10 - K59.09)Discussed medications today that can cause constipation as well as foods that can worsen or improve condition. Start stool softener, take bid, if you develop diarrhea, stop the medication and use as needed. continue lactulose. Take every night until you move your bowels, then as needed. Start laxative if its been >3 days since last bm. Call office if its been >7 days w/o bm. If you develop abd pain, blood in stool, NV, go to the ER.04/25/2025Essential tremor (ICD-10 - G25.0)04/30/2025 Essential tremor (ICD-10 - G25.0)pt requested medication refills today, refills sent per request oarrs ntbaaoxt06/30/2025Diverticular disease (ICD-10 - K57.90) Patient reports persistent abdominal pain and stomach discomfort. History of swollenness and prior pain medication use for stomach issues. Current symptoms may be multifactorial, including possible medication withdrawal. - Ordered Augmentin for abdominal symptoms. - Refilled Tylenol with codeine for pain management. oarrs verified- 04/30/2025Primary osteoarthritis of right knee (ICD-10 - M17.11)Enc pt to exercise at least 30 minutes a day with moderate exercise. NSAIDS can be helpful if you do not have elevated blood pressure. For pain, tylenol 500 mg Q6 hours, do not exceed 3000 mg in a day. Home exercise program. Heat or ice as needed. Topical medications such as biofreeze, asper cream,icy hot can also be helpful. Tumeric is a natural anti-inflammatory which can also alleviate pain.,tordol today03/07/2025Essential tremor (ICD-10 - G25.0)takes lorazepam for her tremors and anxiety, she has been on percocet from surgeon for her diverticular disease explained these cannot be taken together, she VU. Her watch case polisher is with her and is aware/agrees with poc02/14/2025Primary osteoarthritis of left knee (ICD- 10 - M17.12)Patient insisting on tordol, she sees ortho for knee gel injections. Has Tylenol 3 for pain as needed.01/31/2025Primary osteoarthritis of right knee (ICD-10 - M17.11)gets inj by ortho, bone on bone. Enc pt to exercise at least 30 minutes a day with moderate exercise. NSAIDS can be helpful if you do not have elevated blood pressure. For pain, tylenol 500 mg Q6 hours, do not exceed 3000 mg in a day. Home exercise program. Heat or ice as needed. Topical medications such as biofreeze, asper cream, icy hot can also be helpful. Tumeric is a natural anti-inflammatory which can also alleviate pain. You are being prescribed a control substance. These can be habit forming and will be used for a short period a time. Refills will be determined based on symptoms. Do not mix these medications with alcohol, do not share these medications, do not sell these medication,do not drive or operate heavy machinery while taking these medications. OARRS report was reviewed. No misuse or abuse is noted. Pt verbalizes understanding.01/03/2025Essential hypertension (ICD-10 - I10)BP below goal of 140/90, continue medications. Enc daily exercise, low salt diet. Any chest pain, pressure, sob call 911/ER.11/12/2024Essential hypertension (ICD-10 - I10)11/08/2024Primary osteoarthritis of left knee (ICD-10 - M17.12)Enc pt to exercise at least 30 minutes a day with moderate exercise. NSAIDS can be helpful if you do not have elevated blood pressure. For pain, tylenol 500 mg Q6 hours, do not exceed 3000 mg in a day. Home exercise program. Heat or ice as needed. Topical medications such as biofreeze, asper cream,icy hot can also be helpful. Tumeric is a natural anti-inflammatory which can also alleviate pain. requesting toradol shot4Pruritus (ICD-10 - L29.9)pt requested medication refills today, refills sent per ojfxvfz0210/04/2024Essential hypertension (ICD-10 - I10)BP below goal of 140/90, continue medications, will get updated labs. Enc daily exercise, low salt diet. Any chest pain, pressure, sob call 911/ER.08/14/2024 Essential tremor (ICD-10 - G25.0)pt on ativan for tremor, has been helping alot but given her current eviction and unable to find a place to live she has had increased tremors and anxiety will increase to bid, her son is with her and manages medications and agrees with POC07/31/2024hronic obstructive pulmonary disease with acute lower respiratory infection (ICD-10 - J44.0)patient has been on simbicort for several years, will change to trelegy for improve and to maintainlung compacity.06/05/2024Other chronic pain (ICD-10 - G89.29)You are being prescribed a control substance. These can be habit forming and will be used for a short period a time. Refills will be determined based on symptoms. Do not mix these medications with alcohol, do not share these medications, do not sell these medication, do not drive or operate heavy machinery while taking these medications. OARRS report was reviewed. No misuse or abuse is noted. Pt v erbalizes understanding.06/05/2024rimary osteoarthritis of right knee (ICD-10 - M17.11)Enc pt to exercise at least 30 minutes a day with moderate exercise. NSAIDS can be helpful if you do not have elevated blood pressure. For pain, tylenol 500 mg Q6 hours, do not exceed 3000 mg in a day. Home exercise program. Heat or ice as needed. Topical medications such as biofreeze, asper cream,icy hot can also be helpful. Tumeric is a natural anti-inflammatory which can also alleviate pain. Contin with gel injections and f/u with ortho, tordol today as this helps her pain07/05/2024Essential tremor (ICD-10 - G25.0)pt requested medication refills today, refills sent per jjvfknv1808/14/2024Depressed mood (ICD- 10 - R45.89)Continue medication, potential side effects were discussed as well as proper administration of medication. Pt verbalizes understanding. Pt is aware not to stop medication suddenly and to come to office to be weaned down, abrupt discontinuation can cause withdrawal symptoms. Stable mood today, no c/o SI/HI, if feelings occur pt to call 911/ER. Discussed coping mechanisms such as exercise, group therapy, and counseling.11/12/2024Primary osteoarthritis of right knee (ICD-10 - M17.11)01/03/2025Seasonal allergies (ICD-10 - J30.2)Pt enc to start anti-histamine before start of allergy season, for environmental allergies, continue daily use. Nasal sprays such as nasocort or flonase can reduce inflammation, decrease congestion. Proper administration was discussed, enc to use nasal saline rinse to prevent over drying and nose bleeds associated with nasal sprays. avoid over use of Afrin, will cause rebound tenderness. If you develop face pain, pressure, thick drainage, fever, chills, NIETO, symptoms lasting longer than 10 days,RTO for further evaluation for sinus infection. Severe allergies/symptoms, will refer to chair upholsterer for injections if indicated. 10/04/2024Primary osteoarthritis of right knee (ICD-10 - M17.11)Enc pt to exercise at least 30 minutes a day with moderate exercise. NSAIDS can be helpful if you do not have elevated blood pressure. For pain, tylenol 500 mg Q6 hours, do not exceed 3000 mg in a day. Home exercise program. Heat or ice as needed. Topical medications such as biofreeze, asper cream,icy hot can also be helpful. Tumeric is a natural anti-inflammatory which can also alleviate pain.04/30/2025 Generalized abdominal pain (ICD-10 - R10.84)will check labs today, pt has been f/u with Dr. Harper and compteting additional testing. She will no longer be getting oxycodone, but has been getting pain medicaitions per oarrs for several months,her upset stomach can be related to slightly withdraw from daily use of oxy, will get updated urinetox fopvpo5504/30/2025Uncomplicated opioid use (ICD-10 - F11.90)tox screen due01/03/2025Rash (ICD-10 - R21)pt requested medication refills today, refills sent per bnetgct3101/03/2025Diverticular disease (ICD-10 - K57.90)Learning About Diverticulosis and Diverticulitis material was printed, Learning About Diverticulosis and Diverticulitis material was printed. pt seeing GI is to f/u with Dr. Pierson. Pt has been on and off augmentin for therapy, will change to flagyl and cipro to see if she has improved symptoms. advised to stop smoking marjuana, this can increase incidence of flares in people with diverticular disease. She VU in poc. Increaase fiber and water10/04/2024Slow transit constipation (ICD-10 - K59.01)Discussed medications today that can cause constipation as well as foods that can worsen or improvecondition. Start stool softener, take bid, if you develop diarrhea, stop the medication and use as n eeded. Miralax is a laxative, mix packet with water and take at bedtime. Take every night until you move your bowels, then as needed. Start laxative if its been >3 days since last bm. Call officeif its been >7 days w/o bm. If you develop abd pain, blood in stool, NV, go to the ER.07/05/2024rimary osteoarthritis of right knee (ICD-10 - M17.11)Enc pt to exercise at least 30 minutes a day with moderate exercise. NSAIDS can be helpful if you do not have elevated blood pressure. For pain, tylenol 500 mg Q6 hours, do not exceed 3000 mg in a day. Home exercise program. Heat or ice as needed. Topical medications such as biofreeze, asper cream,icy hot can also be helpful. Tumeric is a natural anti-inflammatory which can also alleviate pain.08/14/2024Weight loss, unintentional (ICD-10 - R63.4)pt previously on boast twice a day with increase in weight and stabilization, she has not had boastin some time and now is down nearly 8 lbs, will write order to continue vdepughwva78/05/2024Urinary tract infection without hematuria, site unspecified (ICD-10 - N39.0)10/04/2024Rash (ICD-10 - R21)01/03/2025Primary osteoarthritis of left knee (ICD-10 - M17.12)Enc pt to exercise at least 30 minutes a day with moderate exercise. NSAIDS can be helpful if you do not have elevated blood pressure. For pain, tylenol 500 mg Q6 hours, do not exceed 3000 mg in a day. Home exercise program. Heat or ice as needed. Topical medications such as biofreeze, asper cream,icy hot can also be helpful. Tumeric is a natural anti-inflammatory which can also alleviate pain. jacob mccrary, receives inj from ortho04/30/2025onstipation, unspecified (ICD-10 - K59.00)Patient reports constipation and used Lactulose for relief. Constipation may be contributing to abdominal discomfort.10/04/2024Seasonal allergies (ICD- 10 - J30.2)07/05/2024Seasonal allergies (ICD-10 - J30.2)Pt enc to start anti- histamine before start of allergy season, for environmental allergies, continue daily use. Nasal sprays such as nasocort or flonase can reduce inflammation, decrease congestion. Proper administration was discussed, enc to use nasal saline rinse to prevent over drying and nose bleeds associated with nasal sprays. avoid over use of Afrin, will cause rebound tenderness. If you develop face pain, pressure, thick drainage, fever, chills, NIETO, symptoms lasting longer than 10 days,RTO for further evaluation for sinus infection. Severe allergies/symptoms, will refer to chair upholsterer for injections if indicated. 01/03/2025OtherBody Mass Index: Care Instructions material was emnxrwf3601/31/2025 OtherBody Mass Index: Care Instructions material was cpuzywf0902/28/2025OtherBody Mass Index: Care Instructions material was yklvozw0303/07/2025OtherBody Mass Index: Care Instructions material was ispnjfp8504/30/2025Other Mobility: ambulatory w/o assistive devices What Matters: managing pain and living Medications: takes as prescribed has watch case polisher as well as son to help set up med minder Mentation: intact, see's neurology Plan Of Treatment Pending Test Test Name Order Date Comprehensive Metabolic Panel 10/04/2024 Lipid Panel 10/04/2024 Thyroid Stim Hormone w/Rflx 10/04/2024 Complete Blood Count Auto Diff Chlamydia/GC/Trich LIDIA 02/15/2025 Urine Culture 02/15/2025 URINE - Urinary Tract Infection + High R isk Sexual Behavior (HTRx) 02/14/2025 Next Appt Details Provider Name:Jennifer Samayoa, 06/06/2025 09:30:00 AM, [address] [place], [address], Insurance Providers Payer Name Payer Address Payer Phone Subscriber Number Group Number Insured Name Patient Relationship to Insured Coverage Start Date Coverage End Date [employer] [address] [address] [place] [address] [id number] Curt GONZALEZ - patient is the [id number] 2020MEDICAID [place] TO [address] [place] [id number], MAUREENSelf - patient is the [id number] 2020MEDICARE [facility] [place] [id number], MAUREENSelf - patient is the [id number] 2005 Medications Administered Medication Instructions Date of Administration Dosage Notes Ketorolac Tromethamine 560 mgRocephin 1 gram gRocephin 1 gram gRocephin 1 gram gcefTRIAXone Yujrdk30 gRocephin 500 mg1250 mgRocephin 500 mg1500 mgRocephin 500 mg mLRocephin 500 mg 000 mgRocephin 500 mg000 mgRocephin 500 mg2250 mg Rocephin 500 mg4500 mgRocephin 500 mg4500 mgRocephin 500 mg 2500 mgRocephin 500 mg2500 mgRocephin 500 mg3500 mg Rocephin 500 mg00 mgRocephin 500 mg/1735684 mgRocephin 500 mg 3500 jzTGKWXTO75/08/20191 mL lot#: [id number] exp: 01/30/2020 QMEHSTD45 sPKELRCSK60/17/20201 iJUNSQRGD51 mgTORADOL dVJSFRUAS76/03/20202 hIGUTRNFB08 clBLGPEUE08/05/20252 mL EUPCZWG71 vVWIPASVV47/03/20252 mLKenalog-400 mLKenalog-40 zVIFUQGYF11/05/855843 nfQTGWXNK95/05/224512 hwWZYDAWF31 mg TUNPSRJ59 vzGWZRURH96 otFXUDYTT23/20/20252 mLLt.gluteus wiped with alcohol. 2 ml (60 mg/2 ML) administered in left gluteus w/out difficulty;kamila.same well. No s/sx of adverse reaction while still in clinic. JFTNIXS52 xvKBZBIFK33 baQECXKEJ27 mgTORADOL hkLQYFSIM03 xmUMBKUIR43 qyVKBGWNH76 jLRMRKILD40 xrRWXWOED37 qcQCXDEOC02 mgTORADOL yaQPVENWG29 dsJUTXRAD34/09/20231 yYLFHUQHL73/09/20232 mL SHDUIES73 kFAUFXABW55/04/20232 tVKLNZNKV36/08/20232 lMAYPBNYW65/15/2023 2 mYPCMMPIJ86/20/20222 kDQRHOBKP39/01/20221 vMUDITXMZ07/13/20222 mLTORADOL iZBHOIMTR23/06/20222 vdDWMKJNT26/05/20232 cSTYUNXAO96 mg BAOBFIF64 hQRZULQQD99/03/20211 aITWWGPAZ32/09/20211 xSLJVYKLB56/11/2020 1 zOFYIMYRW18/31/20222.0 mL LOT #: [id number] EXP: 11/2022 Medical (General) History Medical History History ICD Code removed gall bladder IGSDmqcvrvIrzllmjarxuesN61.9[employer] Pacer/defib (model # [id number] lead) ([id number])GI bleed (ischemic colitis) iverticulitisGI bleed s/t rectal ulcerSurgical History Surgery Date(Month/Year) tubal ligation gall badder removalcyst on ovaryPacer/AICD St. JudePace maker09/2020watchman implant08/20/20229829vnsxakjrtbeo1/2024Hospitalization History Reason Date(Month/Year) Rectal bleeding 03/2022 colitis/pace maker put in 2020 heart monitor 05/2020 [place] toxicity 04/2020 Mental Health August 2019 UTI 2019 mental health reasons 2012
--- OUTSIDE RECORDS SUMMARY | 2025-06-05 14:31 | XMS_ITS | Clinical Summary ---
Author Organization [facility] Address [address] [place] [address] Phone Care Team Providers Care Finishing Room Supervisor Name Role Phone Jennifer Samayoa APRN-INSIDE SALES SUPERVISOR Primary Care Provider + Allergies No known active allergies Medications MedicationSigDispense QuantityRefillsLast FilledStart DateEnd DateStatus amLODIPine (Norvasc) 5 mg tablet Take 1 tablet (5 mg) by mouth once daily.Active aspirin 81 mg EC tablet Take 1 tablet (81 mg) by mouth once daily.08/21/2022ctive budesonide-formoteroL (Symbicort) 160-4.5 mcg/actuation inhaler Inhale 2 puffs twice a day.Active deutetrabenazine (Austedo) 9 mg tablet Take 1 tablet (9 mg) by mouth 3 times a day. ONE TABLET IN AM, 2 TABLETS IN PM 05/05/2021ctive dicyclomine (Bentyl) 10 mg capsule Take 2 capsules (20 mg) by mouth 2 times a day.Active Depakote 500 mg EC tablet Take 1 tablet (500 mg) by mouth once daily.Active fluticasone (Flonase) 50 mcg/actuation nasal spray Administer 1 spray into affected nostril(s) once daily.Active lactulose 10 gram/15 mL solution Take 30 mL (20 g) by mouth once daily.Active traZODone (Desyrel) 100 mg tablet Take 1.5 tablets (150 mg) by mouth once daily at bedtime.07/01/2020Active Trintellix 10 mg tablet tablet Take 1 tablet (10 mg) by mouth once daily.07/18/2023ctive zolpidem (Ambien) 5 mg tablet Take 1 tablet (5 mg) by mouth as needed at bedtime for sleep.01/06/2021ctive topiramate (Topamax) 25 mg tablet Take 1 tablet (25 mg) by mouth once daily at bedtime.02/09/2024ctive LORazepam (Ativan) 0.5 mg tablet 1 tablet (0.5 mg) once daily as needed.03/06/2024ctive acetaminophen-codeine (Tylenol w/ Codeine #3) 300-30 mg tablet Take 1 tablet by mouth if needed for severe pain (7 - 10).Active busPIRone (Buspar) 5 mg tablet Take 1 tablet (5 mg) by mouth 2 times a day.12/06/2023ctive Active Problems ProblemNoted DateDiagnosed DateFormer cubpiy0903/15/2024MI 23.0-23.9, adult 03/15/2024ipolar 1 aquupsea95/24/2024hronotropic incompetence with sinus node cyjwtmkeaal08/24/2024Essential hypertension, zhebhi1508/24/2023Hyperlipidemia 08/24/20236286Qxokhhdor52/24/2024Sick sinus /24/2024aroxysmal atrial daplbqgxnckh17/24/2024resence of Watchman left atrial appendage closure device 08/24/2023 Family History Medical HistoryRelationNameCommentsHypertensionFatherParkinsonismFather HypertensionMotherKidney failureMotherAtrial fibrillationSisterHypertension SisterRelationNameStatusCommentsFatherMotherSister Social History Tobacco UseTypesPacks/DayYears UsedDateSmoking Tobacco: FormerCigarettes Smokeless Tobacco: Never Tobacco Cessation:Counseling Given: Not Answered Alcohol UseStandard Drinks/WeekCommentsNever0 (1 standard drink = 0.6 oz pure alcohol)CommentsUnknownSex and Gender InformationValueDate RecordedSex Assigned at BirthNot on fileLegal SqoJcvugf01/26/2022 3:55 PM ESTGender Identity Not on fileSexual OrientationNot on file Last Filed Vital Signs Vital SignReadingTime TakenCommentsBlood Rinrubsn632/7004 3:07 PM EDT Lprlv8284 3:07 PM CQCOuhesnfyfve15.7 ??C (96.2 ??F)07/14/2022 12:59 PM ESTRespiratory Athp000809/14/2021 12:59 PM ESTOxygen Ujimqzxdae58%07/14/2022 12:59 PM ESTInhaled Oxygen Concentration--Kgecuq26.9 kg (127 lb 9.6 oz)11/05/2024 3:07 PM AHANkjnvl184.5 cm (5' 2 )11/05/2024 3:07 PM EDTBody Mass Index23.34011/05/2024 3:07 PM EDT Plan of Treatment DateTypeDepartmentCare Team (Latest Contact Info)Rovbfjuugta97/07/2026 3:30 PM ESTOffice Visit [facility] [address] [facility] [address] [place] [address] Andrzej Montero MD [address] [facility] [address] [place] [address] Health MaintenanceDue DateLast DoneCommentsCT Dimqpyewgdzc44/16/1954Colonoscopy 1953olorectal Cancer Ccvcyzrfo08/16/1954FIT-DNA (Cologuard)1953FIT 1953Lipid Panel1953 4542Eexfetskkmhhs44/16/1954MMR Vaccines (1 of 1 - Standard series)1954Hepatitis C Qoomoubnk63/16/1972Hepatitis A Vaccines (1 of 2 - Risk 2-dose series)1972DTaP/Tdap/Td Vaccines (1 - Tdap)1975 RSV High Risk: (Elderly (60+) or Population) (1 - Risk 50-74 years 1- dose series)2003Hepatitis B Vaccines (1 of 3 - Risk 3-dose series) 2013Medicare Annual Wellness Visit (AWV)/2Diabetes Atihebion72/, 12/29/20179417Etxtssjbc92/14/202402/, 09/14/2022Zoster Vaccines (2 of 2)407/one Density Scan /Influenza Vaccine (#1)/, 03/29/2023, 05/18/2022, Additional history existsCOVID-19 Vaccine ( season) /11/2022, 08/21/2021, 11/06/2020, Additional history exists Pneumococcal LarkuppJonyinkjq28/06/2022HIB VaccinesAged OutNo longer eligible based on patient's age to complete this topicHPV VaccinesAged OutNo longer eligible based on patient's age to complete this topicIPV VaccinesAged OutNo longer eligible based on patient's age to complete this topicMeningococcal VaccineAged OutNo longer eligible based on patient's age to complete this topic Rotavirus VaccinesAged OutNo longer eligible based on patient's age to complete this topic Procedures Procedure NamePriorityDate/TimeAssociated DiagnosisCommentsRENAL FUNCTION PANEL Vzwbokc2708/21/2022 7:21 AM EST from Last 3 Months or Most Recently Relevant to Health Maintenance Results * (ABNORMAL) Renal Function Panel (08/21/2022 7:21 AM EST)ComponentValueRef RangeTest MethodAnalysis TimePerformed AtPathologist QkxftanvqMwytbqb7690 - 99 mg/dL[facility] VZJYnaxan022031 - 145 mmol/[facility] LABPotassium4.23.5 - 5.3 mmol/L [facility] RIPCuaupjay581(H)98 - 107 mmol/[facility] KUQZzkkkwjezsx0513 - 32 mmol/L [facility] LABAnion Kpv1498 - 20 mmol/[facility] LABUrea Hxriohcv041 - 23 mg/dLMER[facility] LABCreatinine0.550.50 - 1.05 mg/dLUHPHYSICI[facility] LABGFR Female>90>90 mL/min/1.54b9PJCMS LABComment: CALCULATIONS OF ESTIMATED GFR ARE PERFORMED USING THE 2020 CKD-EPI STUDY REFIT EQUATION WITHOUT THE RACE VARIABLE FOR THE IDMS-TRACEABLE CREATININE METHODS. https://jasn.asnjournals.org/content/early//ASN.2578228048 Calcium8.68.6 - 10.6 mg/dLMER[facility]ILADEL[facility] LABPhosphorus3.72.5 - 4.9 mg/dLMER[facility]IL[facility] LABComment: The performance characteristics of phosphorus testing in heparinized plasma have been validated by the individual laboratory site where testing is performed. Testing on heparinized plasma is not approved by the FDA; however, such approval is not necessary. Albumin3.2(L)3.4 - 5.0 g/dLMERCY PHILADELPHIA [facility] LABSpecimen (Source)Anatomical Location / LateralityCollection Method / VolumeCollection TimeReceived Time08/21/2022 7:21 AM EST08/21/2022 9:52 AM EST Narrative Authorizing ProviderResult TypeResult Tex Lee PASSENGER REPRESENTATIVE-CNPLAB BLOOD ORDERABLESFinal ResultPerforming OrganizationAddressCity/State/ZIP CodePhone Number [facility] [address] [phone] from Last 3 Months or Most Recently Relevant to Health Maintenance Insurance Care Teams Team MemberRelationshipSpecialtyStart DateEnd Date Jennifer Samayoa APRN-LAKIA [address] [place] [address] [facility] - General09/27/22
--- NOTE | 2025-06-05 15:07 | PM.CN ---
Consult Note: HPI Data of Consult Patient: new to practice Consult date: 06/05/25 Requesting Physician: Ginger Horn NP Primary Care Provider: Jennifer Samayoa NP Consult Narrative Reason for consult: neck, left arm pain Narrative: 69yof who presents for evaluation. longstanding history of neck, shoulder, left arm pain. has had some relief with pain medication, but pain has persistently gotten worse. . has continued in a series of provider directed home exercises >6 weeks, without significant benefit. denies adverse medication side effects. recently underwent cervical MRI which reveals severe central stenosis at C3-4 as well as multilevel foraminal narrowing. pain today 10/10 in left neck and UE. cc:: CC: Ginger Horn NP Review of Systems ROS Status of ROS 10 or more systems reviewed and unremarkable except as noted in history and below Meds Home Medications and Allergies Home Medications ?Medication ?Instructions ?Recorded ?Confirmed ?Type pregabalin 50 mg capsule (Lyrica) 50 mg PO TID 04/15/25 04/15/25 History pregabalin 50 mg capsule (Lyrica) 50 mg PO TID #90 caps 04/15/25 Rx Exam Narrative Exam Narrative: Psych-alert and oriented x 3.? Attentive and appropriate, constitutionally normal, displays normal mood and affect per situation.? There are no obvious deficits in memory, reasoning, or intellect.? Skin-no obvious rashes, bruising, or erythema noted to the patient's area of pain.? Extremities-upper extremities are warm with minimal edema and palpable pulses. Cervical- tenderness to palpation noted in the cervical spine and paraspinal musculature.? Pain is elicited with flexion, extension, and lateral rotation of the cervical spine.? Range of motion is diminished due to pain. Facet loading maneuvers are positive.? Strength- 3.5/5 in LUE and 5/5 in RUE Sensory-no notable sensory deficits in the bilateral upper extremities to touch or pinprick with the exception to decreased sensation to the left C4, 5, 6 dermatomal distribution.? Coordination remains intact.? Gait remains non-antalgic.? Assessment and Plan Assessment and Plan (1) Cervical stenosis of spinal canal: (2) Cervical radiculopathy: (3) Cervical spondylosis: Plan urgent NS consultation to [facility] for evaluation of severe central stenosis at C3-4 and severe pain once evaluated by NS can offer left C3,4 C4,5 TFESI under fluoroscopy if pt nonsurgical, risks vs benefits reviewed maintian pregabalin 50mg tid continue NNCP with chronic benzo use and hx of marijuana/cocaine abuse f/u tbd after NS consult
== END 2025-06-05 14:27 | disposition home or self-care (01) ==
LOC: PM 14:26
PROVIDERS: PCP Nurse Practitioner Adult Health; Visit Provider Nurse Practitioner
DX: M48.02 Spinal stenosis, cervical region (principal); M54.12 Radiculopathy, cervical region; M47.812 Spondylosis without myelopathy or radiculopathy, cervical region
CPT/HCPCS: G0463